=== PATIENT | male | born 1955 | race Hispanic/Latino ===

== ENCOUNTER 2018-07-26 08:22 | Emergency (ER) | payer OTHER ==
[2018-07-26] MEDS ORDERED: LIDOCAINE VISCOUS 2% SOLN 15 ML UDC ONE (09:02)
--- NOTE | 2018-07-26 09:13 | ER ---
Nurse's Notes [facility] Name: Haroldo Srivastava Age: 63 yrs Sex: Male : 1955 Arrival Date: 07/26/2018 Time: 08:25 Bed 20 Private MD: Jack Hinojosa Diagnosis: Retention of urine Presentation: 07/26 08:34 Presenting complaint: Patient states: unable to urinate since last night. Pt is ss currently taking Bactrim for UTI as prescribed by Dr. Pierre 3 days ago. Denies blood in urine and/or fever. Transition of care: patient was not received from another setting of care. Onset of symptoms was July 22, 2018. Risk Assessment: Do you want to hurt yourself or someone else? Patient reports no desire to harm self or others. Initial Sepsis Screen: Does the patient meet any 2 criteria? No. Patient's initial sepsis screen is negative. Does the patient have a suspected source of infection? Yes: Dysuria/Frequency/Urgency/UTI. Care prior to arrival: None. 08:34 Method Of Arrival: Ambulatory ss 08:34 Acuity: TERA 3 ss Historical: - Allergies: 08:37 No Known Allergies; ss - Home Meds: 08:37 Bactrim DS 800-160 mg Oral tab 1 tab 2 times per day [Active]; ss - PMHx: 08:37 None; ss - PSHx: 08:37 None; ss - Immunization history:: Adult Immunizations up to date. - Social history:: Smoking status: Patient/guardian denies using tobacco. - Ebola Screening: : Patient denies exposure to infectious person Patient denies travel to an Ebola-affected area in the 21 days before illness onset. Screenin:55 Abuse screen: Denies threats or abuse. Nutritional screening: No deficits noted. em Tuberculosis screening: No symptoms or risk factors identified. Fall Risk None identified. Assessment: 08:48 General: Appears uncomfortable, Behavior is calm, cooperative, Denies fever. Pain: em Complains of pain in suprapubic area Pain currently is 5 out of 10 on a pain scale. Quality of pain is described as pressure, Pain began last night. Neuro: Level of Consciousness is awake, alert, obeys commands, Oriented to person, place, time, situation. Cardiovascular: Capillary refill < 3 seconds Patient's skin is warm and dry. Respiratory: Airway is patent Respiratory effort is even, unlabored, Respiratory pattern is regular, symmetrical. GI: Abdomen is round Abdomen is tender to palpation in suprapubic area. : Genitalia appear normal Reports inability to void, since last night. EENT: No signs and/or symptoms were reported regarding the EENT system. Derm: Skin is intact, Skin is pink, warm \T\ dry. Musculoskeletal: Range of motion: intact in all extremities. 09:11 Reassessment: Patient and/or family updated on plan of care and expected duration. Pain em level reassessed. Patient is alert, oriented x 3, equal unlabored respirations, skin warm/dry/pink. pt reports feeling better after insertion of catheter. 09:22 Reassessment: Patient appears in no apparent distress at this time. Patient and/or em family updated on plan of care and expected duration. Pain level reassessed. Patient is alert, oriented x 3, equal unlabored respirations, skin warm/dry/pink. replaced jara bag with leg bag, pt tolerated well Patient states feeling better. Patient states symptoms have improved. Vital Signs: 08:37 BP 151 / 90; Pulse 65; Resp 16; Temp 98.6(O); Pulse Ox 97% on R/A; Weight 99.79 kg; ss Height 6 ft. 2 in. (187.96 cm); Pain 5/10; 08:37 Body Mass Index 28.25 (99.79 kg, 187.96 cm) ED Course: 08:25 Patient arrived in ED. mr 08:25 Jack Hinojosa MD is Private Physician. mr 08:28 Nicola Hou MD is Attending Physician. gs 08:35 Cayden Mistry LVN is Primary Nurse. em 08:37 Triage completed. ss 08:37 Arm band placed on right wrist. ss 08:55 Patient has correct armband on for positive identification. Placed in gown. Bed in low em position. Call light in reach. Adult w/ patient. 08:55 Bladder scan completed. 738 mL. em 09:10 Jara cath inserted, using sterile technique, 16 Fr., by mi, balloon inflated, to em gravity drainage, returned clear yellow urine. Patient tolerated well. 09:12 Lowell Pierre MD is Referral Physician. gs 09:23 No provider procedures requiring assistance completed. Patient did not have IV access em during this emergency room visit. Administered Medications: No medications were administered Outcome: 09:12 Discharge ordered by . gs 09:23 Discharged to home ambulatory, with family. em 09:23 Condition: good 09:23 Discharge instructions given to patient, family, Instructed on discharge instructions, follow up and referral plans. Demonstrated understanding of instructions, follow-up care. 09:36 Patient left the ED. em Signatures: Antonina Pedro Edgar, BUYER PLANNER BUYER PLANNER em Shannon Finley, JT RN ss Nicola Hou MD MD
--- NOTE | 2018-07-26 09:13 | EDPHYS ---
Physician Documentation [facility] Name: Haroldo Srivastava Age: 63 yrs Sex: Male : 1955 Arrival Date: 07/26/2018 Time: 08:25 Bed 20 Private MD: Jack Hinojosa ED Physician Nicola Hou HPI: 07/26 09:10 This 63 yrs old Male presents to ER via Ambulatory with complaints of Urinary gs Problem. 09:10 The patient presents with urinary symptoms, retention. Onset: The symptoms/episode gs began/occurred yesterday. Modifying factors: The symptoms are alleviated by nothing, the symptoms are aggravated by nothing. Associated signs and symptoms: Pertinent negatives: fever. Severity of symptoms: At their worst the symptoms were moderate, in the emergency department the symptoms are unchanged. The patient has not experienced similar symptoms in the past. The patient has been recently seen by a physician: Dr. pierre. Historical: - Allergies: 08:37 No Known Allergies; ss - Home Meds: 08:37 Bactrim DS 800-160 mg Oral tab 1 tab 2 times per day [Active]; ss - PMHx: 08:37 None; ss - PSHx: 08:37 None; ss - Immunization history:: Adult Immunizations up to date. - Social history:: Smoking status: Patient/guardian denies using tobacco. - Ebola Screening: : Patient denies exposure to infectious person Patient denies travel to an Ebola-affected area in the 21 days before illness onset. ROS: 09:10 All other systems are negative. gs Exam: 09:10 Head/Face: Normocephalic, atraumatic. Eyes: Pupils equal round and reactive to light, gs extra-ocular motions intact. Lids and lashes normal. Conjunctiva and sclera are non-icteric and not injected. Cornea within normal limits. Periorbital areas with no swelling, redness, or edema. Cardiovascular: Regular rate and rhythm with a normal S1 and S2. No gallops, murmurs, or rubs. Normal PMI, no JVD. No pulse deficits. Respiratory: Lungs have equal breath sounds bilaterally, clear to auscultation and percussion. No rales, rhonchi or wheezes noted. No increased work of breathing, no retractions or nasal flaring. Back: No spinal tenderness. No costovertebral tenderness. Full range of motion. Skin: Warm, dry with normal turgor. Normal color with no rashes, no lesions, and no evidence of cellulitis. MS/ Extremity: Pulses equal, no cyanosis. Neurovascular intact. Full, normal range of motion. Neuro: Awake and alert, GCS 15, oriented to person, place, time, and situation. Cranial nerves II-XII grossly intact. Motor strength 5/5 in all extremities. Sensory grossly intact. Cerebellar exam normal. Normal gait. 09:10 Constitutional: The patient appears alert, awake. 09:10 Abdomen/GI: Exam negative for acute changes. 09:10 : Bladder: distension, that is moderate, tenderness, that is mild. Vital Signs: 08:37 BP 151 / 90; Pulse 65; Resp 16; Temp 98.6(O); Pulse Ox 97% on R/A; Weight 99.79 kg; ss Height 6 ft. 2 in. (187.96 cm); Pain 5/10; 08:37 Body Mass Index 28.25 (99.79 kg, 187.96 cm) ss MDM: 08:37 Patient medically screened. gs 09:10 Differential diagnosis: nonspecific abdominal pain, UTI, urinary retention. Data gs reviewed: vital signs, nurses notes. Counseling: I had a detailed discussion with the patient and/or guardian regarding: the historical points, exam findings, and any diagnostic results supporting the discharge/admit diagnosis, the need for outpatient follow up. Response to treatment: the patient's symptoms have markedly improved after treatment, and as a result, I will discharge patient. 09:13 Counseling: I had a detailed discussion with the patient and/or guardian regarding: the gs presence of at least one elevated blood pressure reading (>120/80) during this emergency department visit. Special discussion: I have referred the patient to see his PCP for further evaluation of high blood pressure. 07/26 08:38 Order name: Bladder Scanner; Complete Time: 08:54 gs Administered Medications: No medications were administered Disposition: 07/26/18 09:12 Discharged to Home. Impression: Retention of urine. - Condition is Stable. - Discharge Instructions: Acute Urinary Retention, Male, Darby Catheter Care, Adult, [place], Managing Your Hypertension. - Work release form, Medication Reconciliation Form, Thank You Letter, Antibiotic Education, Prescription Opioid Use form. - Follow up: Lowell Pierre MD; When: 2 - 3 days; Reason: Re-evaluation by your physician. Signatures: Cayden Mistry LVN LVN em Smirch, Shelby, RN RN ss Nicola Hou MD MD gs Corrections: (The following items were deleted from the chart) 09:36 09:12 07/26/2018 09:12 Discharged to Home. Impression: Retention of urine. Condition is em Stable. Forms are Medication Reconciliation Form, Thank You Letter, Antibiotic Education, Prescription Opioid Use. Follow up: Lowell Pierre; When: 2 - 3 days; Reason: Re-evaluation by your physician. gs
[2018-07-26 09:43] VITALS: BP 151/90; TEMP 98.6; O2SAT 97
== END 2018-07-26 09:36 | disposition home or self-care (01) ==
LOC: ER 08:22
DX: R33.9 Retention of urine, unspecified (principal)
CPT/HCPCS: 51702; 99284

== ENCOUNTER 2019-01-31 02:53 | Emergency (ER) | payer OTHER ==
--- OUTSIDE RECORDS SUMMARY | 2019-01-31 02:55 | XMS REPORT ---
:1955 [facility] Address [address] [place] [address] Dr. Lobo[address] [place] [id number] Care Team Providers Name Role Phone Unavailable Unavailable Unavailable Problems This patient has no known problems. Allergies, Adverse Reactions, Alerts This patient has no known allergies or adverse reactions. Medications This patient has no known medications.
--- NOTE | 2019-01-31 03:36 | EDPHYS ---
Physician Documentation [facility] Name: Haroldo Srivastava Age: 63 yrs Sex: Male : 1955 Arrival Date: 01/31/2019 Time: 02:57 Bed 13 Private MD: Jack Hinojosa ED Physician Eagle Hayward HPI: 01/31 03:30 This 63 yrs old Male presents to ER via Ambulatory with complaints of Urinary pkl Retention. 03:30 The patient presents with urinary symptoms, retention. Onset: The symptoms/episode pkl began/occurred just prior to arrival, 2 hour(s) ago. The patient has experienced a previous episode, approximately 1 years ago. Historical: - Allergies: 03:16 No Known Allergies; tl2 - Home Meds: 03:17 None [Active]; tl2 - PMHx: 03:16 None; tl2 - PSHx: 03:16 None; tl2 - Immunization history:: Adult Immunizations up to date. - Social history:: Smoking status: Patient/guardian denies using tobacco. - Ebola Screening: : No symptoms or risks identified at this time. ROS: 03:30 Eyes: Negative for injury, pain, redness, and discharge, ENT: Negative for injury, pkl pain, and discharge, Neck: Negative for injury, pain, and swelling, Cardiovascular: Negative for chest pain, palpitations, and edema, Respiratory: Negative for shortness of breath, cough, wheezing, and pleuritic chest pain, Abdomen/GI: Negative for abdominal pain, nausea, vomiting, diarrhea, and constipation, Back: Negative for injury and pain. 03:30 : Positive for urinary symptoms, retention of urine. 03:30 MS/extremity: Negative for acute changes. 03:30 Skin: Negative for rash. 03:30 Neuro: Negative for altered mental status. Exam: 03:30 Head/Face: Normocephalic, atraumatic. Eyes: Pupils equal round and reactive to light, pkl extra-ocular motions intact. Lids and lashes normal. Conjunctiva and sclera are non-icteric and not injected. Cornea within normal limits. Periorbital areas with no swelling, redness, or edema. ENT: Nares patent. No nasal discharge, no septal abnormalities noted. Tympanic membranes are normal and external auditory canals are clear. Oropharynx with no redness, swelling, or masses, exudates, or evidence of obstruction, uvula midline. Mucous membranes moist. Neck: Trachea midline, no thyromegaly or masses palpated, and no cervical lymphadenopathy. Supple, full range of motion without nuchal rigidity, or vertebral point tenderness. No Meningismus. Chest/axilla: Normal chest wall appearance and motion. Nontender with no deformity. No lesions are appreciated. Cardiovascular: Regular rate and rhythm with a normal S1 and S2. No gallops, murmurs, or rubs. Normal PMI, no JVD. No pulse deficits. Respiratory: Lungs have equal breath sounds bilaterally, clear to auscultation and percussion. No rales, rhonchi or wheezes noted. No increased work of breathing, no retractions or nasal flaring. 03:30 Abdomen/GI: Bowel sounds: normal, Palpation: nontender. 03:30 Back: Exam negative for acute changes. pkl 03:30 : Exam negative for acute changes. 03:30 Musculoskeletal/extremity: Exam is negative for acute changes. 03:30 Skin: Exam negative for rash. 03:30 Neuro: Orientation: is normal, Mentation: is normal, Cranial nerves: grossly normal, Motor: is normal. Vital Signs: 03:17 BP 156 / 93; Pulse 63; Resp 18; Temp 98.6; Pulse Ox 97% on R/A; Weight 102.06 kg; tl2 Height 6 ft. 1 in. (185.42 cm); Pain 8/10; 04:53 BP 114 / 80; Pulse 67; Resp 18; Pulse Ox 97% on R/A; tl2 03:17 Body Mass Index 29.68 (102.06 kg, 185.42 cm) tl2 MDM: 03:22 Patient medically screened. pkl 03:30 Data reviewed: vital signs, nurses notes. pkl 01/31 03:22 Order name: Darby-Coude; Complete Time: 03:22 tl2 01/31 04:39 Order name: Leg Bag; Complete Time: 04:41 lt1 Administered Medications: No medications were administered Disposition: 01/31/19 03:35 Discharged to Home. Impression: Retention of urine. - Condition is Stable. - Prescriptions for Bactrim DS 800- 160 mg Oral Tablet - take 1 tablet by ORAL route every 12 hours for 10 days; 20 tablet. - Medication Reconciliation Form, Thank You Letter, Antibiotic Education, Prescription Opioid Use form. - Follow up: Lowell Pierre MD; When: 2 - 3 days; Reason: Re-evaluation by your physician. - Problem is new. - Symptoms have improved. Signatures: Eagle Hayward MD MD pkl Bernadette Kraft RN RN tl2 Nusrat Chavez 1 Corrections: (The following items were deleted from the chart) 04:52 03:35 01/31/2019 03:35 Discharged to Home. Impression: Retention of urine. Condition is tl2 Stable. Forms are Medication Reconciliation Form, Thank You Letter, Antibiotic Education, Prescription Opioid Use. Follow up: Lowell Pierre; When: 2 - 3 days; Reason: Re-evaluation by your physician. Problem is new. Symptoms have improved. pkl
--- NOTE | 2019-01-31 03:36 | ER ---
Nurse's Notes [facility] Name: Haroldo Srivastava Age: 63 yrs Sex: Male : 1955 Arrival Date: 01/31/2019 Time: 02:57 Bed 13 Private MD: Jack Hinojosa Diagnosis: Retention of urine Presentation: 01/31 03:15 Presenting complaint: Patient states: Unable to urinate for the last 2 hours, feels tl2 like bladder is full. Uncomfortable and pacing around room. States this has happened once before and he needed a catheter. Transition of care: patient was not received from another setting of care. Onset of symptoms was January 31, 2019. Risk Assessment: Do you want to hurt yourself or someone else? Patient reports no desire to harm self or others. Initial Sepsis Screen: Does the patient meet any 2 criteria? No. Patient's initial sepsis screen is negative. Does the patient have a suspected source of infection? No. Patient's initial sepsis screen is negative. Care prior to arrival: None. 03:15 Method Of Arrival: Ambulatory tl2 03:15 Acuity: TERA 3 tl2 Triage Assessment: 03:17 General: Appears in no apparent distress. uncomfortable, Behavior is cooperative, tl2 appropriate for age, anxious, restless. Pain: Complains of pain in suprapubic area. Neuro: Level of Consciousness is awake, alert, obeys commands, Oriented to person, place, time, situation. Cardiovascular: Denies chest pain. Respiratory: Airway is patent Respiratory effort is even, unlabored, Respiratory pattern is regular, symmetrical. GI: No signs and/or symptoms were reported involving the gastrointestinal system. GI:. : Reports inability to void, pain in suprapubic area. : distended bladder. Derm: Skin is pink, warm \T\ dry. Historical: - Allergies: 03:16 No Known Allergies; tl2 - Home Meds: 03:17 None [Active]; tl2 - PMHx: 03:16 None; tl2 - PSHx: 03:16 None; tl2 - Immunization history:: Adult Immunizations up to date. - Social history:: Smoking status: Patient/guardian denies using tobacco. - Ebola Screening: : No symptoms or risks identified at this time. Screenin:21 Abuse screen: Denies threats or abuse. Nutritional screening: No deficits noted. tl2 Tuberculosis screening: No symptoms or risk factors identified. Fall Risk None identified. Assessment: 03:21 General: see triage assessment. tl2 03:57 Reassessment: Patient appears in no apparent distress at this time. Patient and/or tl2 family updated on plan of care and expected duration. Pain level reassessed. Patient is alert, oriented x 3, equal unlabored respirations, skin warm/dry/pink. will transition jara to leg bag before discharge Patient states feeling better. 04:40 Reassessment: Patient appears in no apparent distress at this time. Patient and/or tl2 family updated on plan of care and expected duration. Pain level reassessed. Patient is alert, oriented x 3, equal unlabored respirations, skin warm/dry/pink. converted jara to leg bag, instructed patient on usage and how to drain. Pt verbalized understanding. Pt verbalized understanding of discharge instructions, need for follow up and prescription usage. Patient states feeling better. Vital Signs: 03:17 BP 156 / 93; Pulse 63; Resp 18; Temp 98.6; Pulse Ox 97% on R/A; Weight 102.06 kg; tl2 Height 6 ft. 1 in. (185.42 cm); Pain 8/10; 04:53 BP 114 / 80; Pulse 67; Resp 18; Pulse Ox 97% on R/A; tl2 03:17 Body Mass Index 29.68 (102.06 kg, 185.42 cm) tl2 ED Course: 02:57 Patient arrived in ED. am2 02:57 Jack Hinojosa MD is Private Physician. am2 03:14 Bernadette Kraft, RN is Primary Nurse. tl2 03:16 Triage completed. tl2 03:17 Arm band placed on right wrist. tl2 03:20 Patient has correct armband on for positive identification. Placed in gown. Bed in low tl2 position. Call light in reach. Side rails up X 1. Adult w/ patient. 03:20 Bladder scan completed. 789. Coud inserted, using sterile technique, 18 Fr. Returned tl2 clear yellow urine. To gravity drainage. Patient tolerated well. 03:22 Eagle Hayward MD is Attending Physician. pkl 03:35 Lowell Pierre MD is Referral Physician. pkl 04:40 No provider procedures requiring assistance completed. Patient did not have IV access tl2 during this emergency room visit. Administered Medications: No medications were administered Output: 03:41 Urine: 550ml (Jara); Total: 550ml. tl2 04:40 Urine: 600ml (Jara); Total: 1150ml. tl2 Outcome: 03:35 Discharge ordered by . pkl 04:40 Discharged to home ambulatory, with family. tl2 04:40 Condition: stable 04:40 Discharge instructions given to patient, family, Instructed on discharge instructions, follow up and referral plans. medication usage, use of jara leg bag Demonstrated understanding of instructions, follow-up care, medications, Prescriptions given X 1. 04:52 Patient left the ED. tl2 Signatures: Eagle Hayward MD MD pkl Bernadette Kraft RN RN tl2 Duyen Hammer am2 Corrections: (The following items were deleted from the chart) 03:42 03:23 Urine 1000, (Jara), Output Total 1000. tl2 tl2
[2019-01-31 04:57] VITALS: BP 156/93; TEMP 98.6; O2SAT 97
== END 2019-01-31 04:52 | disposition home or self-care (01) ==
LOC: ER 02:53
DX: R33.9 Retention of urine, unspecified (principal)
CPT/HCPCS: 99284

== ENCOUNTER 2019-02-01 08:10 | Emergency (ER) | payer OTHER ==
--- OUTSIDE RECORDS SUMMARY | 2019-02-01 08:16 | XMS REPORT ---
:1955 [facility] Address [address] [place] [address] [address]. [address] [place] [address] Care Team Providers Name Role Phone Unavailable Unavailable Unavailable Problems This patient has no known problems. Allergies, Adverse Reactions, Alerts This patient has no known allergies or adverse reactions. Medications This patient has no known medications.
--- NOTE | 2019-02-01 08:45 | EDPHYS ---
Physician Documentation [facility] Name: Haroldo Srivastava Age: 63 yrs Sex: Male : 1955 Arrival Date: 02/01/2019 Time: 08:13 Bed 8 Private MD: Jack Hinojosa ED Physician Derrek Sumnre HPI: 02/01 08:38 This 63 yrs old Male presents to ER via Ambulatory with complaints of Urinary madison Problem. 08:38 The patient presents with a Jara catheter problem, is not draining. Onset: The madison symptoms/episode began/occurred 1 day(s) ago. Modifying factors: The symptoms are alleviated by the symptoms are aggravated by nothing. Associated signs and symptoms: The patient has no apparent associated signs or symptoms. Severity of symptoms: At their worst the symptoms were mild, in the emergency department the symptoms are unchanged. The patient has not experienced similar symptoms in the past. Historical: - Allergies: 08:17 No Known Allergies; sv - PMHx: 08:17 None; sv - PSHx: 08:17 None; sv - Immunization history:: Adult Immunizations up to date. - Social history:: Smoking status: Patient/guardian denies using tobacco. - Ebola Screening: : No symptoms or risks identified at this time. - Family history:: not pertinent. ROS: 08:38 Constitutional: Negative for fever, chills, and weight loss, Eyes: Negative for injury, madison pain, redness, and discharge, ENT: Negative for injury, pain, and discharge, Neck: Negative for injury, pain, and swelling, Cardiovascular: Negative for chest pain, palpitations, and edema, Respiratory: Negative for shortness of breath, cough, wheezing, and pleuritic chest pain, Back: Negative for injury and pain, : Negative for injury, bleeding, discharge, and swelling, MS/Extremity: Negative for injury and deformity, Skin: Negative for injury, rash, and discoloration, Neuro: Negative for headache, weakness, numbness, tingling, and seizure, Psych: Negative for depression, anxiety, suicide ideation, homicidal ideation, and hallucinations, Allergy/Immunology: Negative for hives, rash, and allergies, Endocrine: Negative for neck swelling, polydipsia, polyuria, polyphagia, and marked weight changes, Hematologic/Lymphatic: Negative for swollen nodes, abnormal bleeding, and unusual bruising. 08:38 Abdomen/GI: Positive for abdominal pain, of the suprapubic area. 08:38 : Positive for urinary symptoms, burning with urination, difficulty urinating, jara blocked. 08:38 MS/extremity: Exam: 08:38 Constitutional: This is a well developed, well nourished patient who is awake, alert, madison and in no acute distress. Head/Face: Normocephalic, atraumatic. Eyes: Pupils equal round and reactive to light, extra-ocular motions intact. Lids and lashes normal. Conjunctiva and sclera are non-icteric and not injected. Cornea within normal limits. Periorbital areas with no swelling, redness, or edema. ENT: Nares patent. No nasal discharge, no septal abnormalities noted. Tympanic membranes are normal and external auditory canals are clear. Oropharynx with no redness, swelling, or masses, exudates, or evidence of obstruction, uvula midline. Mucous membranes moist. Neck: Trachea midline, no thyromegaly or masses palpated, and no cervical lymphadenopathy. Supple, full range of motion without nuchal rigidity, or vertebral point tenderness. No Meningismus. Chest/axilla: Normal chest wall appearance and motion. Nontender with no deformity. No lesions are appreciated. Cardiovascular: Regular rate and rhythm with a normal S1 and S2. No gallops, murmurs, or rubs. Normal PMI, no JVD. No pulse deficits. Respiratory: Lungs have equal breath sounds bilaterally, clear to auscultation and percussion. No rales, rhonchi or wheezes noted. No increased work of breathing, no retractions or nasal flaring. Abdomen/GI: Soft, non-tender, with normal bowel sounds. No distension or tympany. No guarding or rebound. No evidence of tenderness throughout. Back: No spinal tenderness. No costovertebral tenderness. Full range of motion. Skin: Warm, dry with normal turgor. Normal color with no rashes, no lesions, and no evidence of cellulitis. MS/ Extremity: Pulses equal, no cyanosis. Neurovascular intact. Full, normal range of motion. Neuro: Awake and alert, GCS 15, oriented to person, place, time, and situation. Cranial nerves II-XII grossly intact. Motor strength 5/5 in all extremities. Sensory grossly intact. Cerebellar exam normal. Normal gait. Psych: Awake, alert, with orientation to person, place and time. Behavior, mood, and affect are within normal limits. 08:38 : Male external genitalia: normal, Bladder: distension, that is mild. Vital Signs: 08:17 BP 154 / 88; Pulse 57; Resp 16; Temp 98.1; Pulse Ox 97% ; Weight 102.06 kg; Height 6 sv ft. 1 in. (185.42 cm); Pain 0/10; 09:25 BP 131 / 79; Pulse 65; Resp 14; Temp 98; Pulse Ox 98% ; bp 08:17 Body Mass Index 29.68 (102.06 kg, 185.42 cm) sv MDM: 08:21 Patient medically screened. [facility] 08:40 Data reviewed: vital signs, nurses notes, lab test result(s). [facility] 02/01 08:43 Order name: Urine Culture [facility] 02/01 08:45 Order name: Urine Culture [facility] 02/01 08:37 Order name: Jara: remove and replace; Complete Time: 08:48 [facility] 02/01 08:43 Order name: Urine Dipstick-Ancillary (obtain specimen); Complete Time: 08:56 [facility] Administered Medications: 09:00 Drug: Flomax 0.4 mg Route: PO; bp 09:13 Follow up: Response: No adverse reaction bp 09:00 Drug: Cipro 500 mg Route: PO; bp 09:12 Follow up: Response: No adverse reaction bp Disposition: 02/01/19 08:44 Discharged to Home. Impression: Retention of urine. - Condition is Stable. - Discharge Instructions: Jara Catheter Care, Adult, Acute Urinary Retention, Male, [id number], Jara Catheter Care, Adult, [id number]. - Prescriptions for Flomax 0.4 mg Oral Capsule, Sust. Release 24 hr - take 1 capsule by ORAL route once daily 1/2 hour following the same meal each day; 30 capsule. Cipro 500 mg Oral Tablet - take 1 tablet by ORAL route every 12 hours for 7 days; 14 tablet. - Medication Reconciliation Form, Thank You Letter, Antibiotic Education, Prescription Opioid Use form. - Follow up: Jack Hinojosa MD; When: 2 - 3 days; Reason: Recheck today's complaints, Continuance of care, Re-evaluation by your physician. Follow up: oLwell Pierre MD; When: 1 - 2 days; Reason: Recheck today's complaints, Re-evaluation by your physician. - Problem is new. - Symptoms have improved. Signatures: Dispatcher [employer] Tammy Orr, RN RN Derrek Smith MD MD cha Peltier, Brian RN RN bp Corrections: (The following items were deleted from the chart) 09:27 08:44 02/01/2019 08:44 Discharged to Home. Impression: Retention of urine. Condition is bp Stable. Forms are Medication Reconciliation Form, Thank You Letter, Antibiotic Education, Prescription Opioid Use. Follow up: Jack Hinojosa; When: 2 - 3 days; Reason: Recheck today's complaints, Continuance of care, Re-evaluation by your physician. Follow up: Lowell Pierre; When: 1 - 2 days; Reason: Recheck today's complaints, Re-evaluation by your physician. Problem is new. Symptoms have improved. madison
--- NOTE | 2019-02-01 08:45 | ER ---
Nurse's Notes [facility] Name: Haroldo Srivastava Age: 63 yrs Sex: Male : 1955 Arrival Date: 02/01/2019 Time: 08:13 Bed 8 Private MD: Jack Hinojosa Diagnosis: Retention of urine Presentation: 02/01 08:15 Risk Assessment: Do you want to hurt yourself or someone else? Patient reports no bp desire to harm self or others. 08:16 Presenting complaint: Patient states: hasn't had anymore urine since 0200 today, pt has sv a pisano catheter in place that was placed here on Friday. Pt c/o pain when he tries to urinate. Transition of care: patient was not received from another setting of care. Onset of symptoms was February 01, 2019. Initial Sepsis Screen: Does the patient meet any 2 criteria? No. Patient's initial sepsis screen is negative. Does the patient have a suspected source of infection? No. Patient's initial sepsis screen is negative. Care prior to arrival: None. 08:16 Method Of Arrival: Ambulatory sv 08:16 Acuity: TERA 3 sv Triage Assessment: 08:16 General: Appears in no apparent distress. well developed, Behavior is calm, sv cooperative, appropriate for age. Neuro: Level of Consciousness is awake, alert, obeys commands, Oriented to person, place, time, situation, Gait is steady. Respiratory: Respiratory effort is even, unlabored, Respiratory pattern is regular, symmetrical. : Reports pain with urination. Historical: - Allergies: 08:17 No Known Allergies; sv - PMHx: 08:17 None; sv - PSHx: 08:17 None; sv - Immunization history:: Adult Immunizations up to date. - Social history:: Smoking status: Patient/guardian denies using tobacco. - Ebola Screening: : No symptoms or risks identified at this time. - Family history:: not pertinent. Screenin:15 Abuse screen: Denies threats or abuse. Denies injuries from another. Nutritional bp screening: No deficits noted. Tuberculosis screening: No symptoms or risk factors identified. Fall Risk None identified. Assessment: 08:15 General: Appears distressed, uncomfortable, Behavior is cooperative, appropriate for bp age, anxious. Pain: Complains of pain in pelvis Pain currently is 10 out of 10 on a pain scale. Neuro: Level of Consciousness is awake, alert, obeys commands, Oriented to person, place, time, situation. Cardiovascular: No deficits noted. Respiratory: Airway is patent Respiratory effort is even, unlabored, Respiratory pattern is regular, symmetrical. GI: No signs and/or symptoms were reported involving the gastrointestinal system. : No signs and/or symptoms were reported regarding the genitourinary system. EENT: No deficits noted. Derm: No deficits noted. Musculoskeletal: Circulation, motion, and sensation intact. Range of motion: intact in all extremities. 09:25 Reassessment: PISANO BAG REPLACED WITH LEG BAG. PT D/C HOME AMBULATORY WITH FAMILY, TO bp F/U WITH UROLOGY. Vital Signs: 08:17 BP 154 / 88; Pulse 57; Resp 16; Temp 98.1; Pulse Ox 97% ; Weight 102.06 kg; Height 6 sv ft. 1 in. (185.42 cm); Pain 0/10; 09:25 BP 131 / 79; Pulse 65; Resp 14; Temp 98; Pulse Ox 98% ; bp 08:17 Body Mass Index 29.68 (102.06 kg, 185.42 cm) sv ED Course: 08:13 Patient arrived in ED. ag5 08:13 Jack Hinojosa MD is Private Physician. ag5 08:15 Patient has correct armband on for positive identification. Bed in low position. Call bp light in reach. Side rails up X2. Adult w/ patient. 08:17 Triage completed. sv 08:17 Arm band placed on. sv 08:21 Derrek Sumner MD is Attending Physician. madison 08:44 Jack Hinojosa MD is Referral Physician. maidson 08:44 Lowell Pierre MD is Referral Physician. madison 08:46 Naveed Pinedo, JT is Primary Nurse. bp 08:48 Pisano cath inserted, using sterile technique, 16 Fr., by ks, balloon inflated, to bp gravity drainage, urine specimen collected. other PREVIOUS PISANO REMOVED, CLOTS NOTED IN TUBE. 08:55 Urine collected: Pisano catheter specimen, cloudy, db colored. jb1 09:26 No provider procedures requiring assistance completed. Patient did not have IV access bp during this emergency room visit. Administered Medications: 09:00 Drug: Flomax 0.4 mg Route: PO; bp 09:13 Follow up: Response: No adverse reaction bp 09:00 Drug: Cipro 500 mg Route: PO; bp 09:12 Follow up: Response: No adverse reaction bp Outcome: 08:44 Discharge ordered by . madison 09:26 Discharged to home ambulatory, with family. bp 09:26 Condition: stable 09:26 Discharge instructions given to patient, Instructed on discharge instructions, follow up and referral plans. medication usage, Demonstrated understanding of instructions, follow-up care, medications, Prescriptions given X 2. 09:27 Patient left the ED. bp Signatures: Ancelmo Humphreys jb1 Tammy Mix, JT RN Derrek Smith MD MD cha Peltier, Brian, RN RN Brennen Stout ag5
[2019-02-01] MEDS ORDERED: TAMSULOSIN 0.4 MG SR CAP ONE (09:20)
[2019-02-01] MEDS ORDERED: CIPROFLOXACIN HCL 500 MG TAB ONE (09:20)
[2019-02-01 09:42] VITALS: BP 131/79; TEMP 98; O2SAT 98
[2019-02-01 10:43] LABS: Urine Blood 3+ (NEG); Urine Glucose NEGATIVE (NEG); Urine Protein 2+ (NEG); Urine Specific Gravity 1.025 (1.005-1.030)
== END 2019-02-01 09:27 | disposition home or self-care (01) ==
LOC: ER 08:10
DX: R33.9 Retention of urine, unspecified (principal); T83.098A Other mechanical complication of other urinary catheter, initial encounter
CPT/HCPCS: 51702; 81003; 87086; 87088; 99284

== ENCOUNTER 2019-02-10 06:15 | Emergency (ER) | payer OTHER ==
--- OUTSIDE RECORDS SUMMARY | 2019-02-10 06:17 | XMS REPORT | Clinical Summary ---
:1955 Author Organization [facility] Address [address] [place] [address] Care Team Providers Name Role Phone Unavailable Primary Care Provider Unavailable Allergies Not on File Medications Not on file Active Problems Not on file Social History Tobacco Use Types Packs/Day Years Used Date Never Assessed Sex Assigned at Date Recorded Not on file Job Start Date Occupation Industry Not on file Not on file Not on file Travel History Travel Start Travel End No recent travel history available. Last Filed Vital Signs Not on file Plan of Treatment Date Type Specialty Care Team Description 03/09/2019 Office Visit Urology Cristobal Granados MD [address] [phone] Results Not on fileafter 02/09/2018 Insurance Payer Benefit Plan / Group Subscriber ID Type Phone Address OSMAR FARIASGENARO MORATAYA xxxxxxxxxxx
--- OUTSIDE RECORDS SUMMARY | 2019-02-10 06:18 | XMS REPORT ---
:1955 [facility] Address [address] [place] [address] [address] [place] [address] Care Team Providers Name Role Phone Unavailable Unavailable Unavailable Problems This patient has no known problems. Allergies, Adverse Reactions, Alerts This patient has no known allergies or adverse reactions. Medications This patient has no known medications.
--- NOTE | 2019-02-10 07:11 | ER ---
Nurse's Notes [facility] Name: Haroldo Srivastava Age: 63 yrs Sex: Male : 1955 Arrival Date: 02/10/2019 Time: 06:18 Bed 16 Private MD: Diagnosis: Retention of urine;Encounter for fitting and adjustment of urinary device Presentation: 02/10 06:30 Presenting complaint: Patient states: he has a jara due to urinary retention but it is bb not working and he is in severe pain. Transition of care: patient was not received from another setting of care. Onset of symptoms was February 10, 2019. Risk Assessment: Do you want to hurt yourself or someone else? Patient reports no desire to harm self or others. Initial Sepsis Screen: Does the patient meet any 2 criteria? No. Patient's initial sepsis screen is negative. Does the patient have a suspected source of infection? No. Patient's initial sepsis screen is negative. Care prior to arrival: None. 06:30 Method Of Arrival: Ambulatory bb 06:30 Acuity: TERA 3 bb Triage Assessment: 06:35 General: Appears uncomfortable, slender, Behavior is anxious. Pain: Complains of pain bb in pelvis Pain currently is 10 out of 10 on a pain scale. Neuro: Level of Consciousness is awake, alert, obeys commands, Oriented to person, place, time, situation. Cardiovascular: No deficits noted. Respiratory: Respiratory effort is even, unlabored, Respiratory pattern is regular. GI: No signs and/or symptoms were reported involving the gastrointestinal system. : Reports inability to void. : Jara in place. Musculoskeletal: Circulation, motion, and sensation intact. - Immunization history:: Adult Immunizations unknown. - Social history:: Smoking status: unknown. - Ebola Screening: : No symptoms or risks identified at this time. Screenin:53 Abuse screen: Denies threats or abuse. Nutritional screening: No deficits noted. bb Tuberculosis screening: No symptoms or risk factors identified. Fall Risk None identified. Assessment: 07:35 Reassessment: Patient appears in no apparent distress at this time. Patient and/or ph family updated on plan of care and expected duration. Pain level reassessed. Patient is alert, oriented x 3, equal unlabored respirations, skin warm/dry/pink. Jara in place, draining well, approx 550 cc noted in bedside drainage bag, converted to leg bag and pt d/c home w/ instructions to follow up w/ urologist this afternoon Patient states feeling better. Patient states symptoms have improved. Vital Signs: 06:35 BP 151 / 98; Pulse 60; Resp 18 S; Temp 98.4(O); Pulse Ox 100% on R/A; Weight 102.06 kg bb (R); Height 6 ft. 1 in. (185.42 cm) (R); Pain 10/10; 07:37 BP 142 / 78; Pulse 62; Resp 18; Temp 97.9(TE); Pulse Ox 100% on R/A; Pain 2/10; ph 06:35 Body Mass Index 29.68 (102.06 kg, 185.42 cm) bb ED Course: 06:18 Patient arrived in ED. am2 06:27 Renea Romero [facility]-C [facility]. snw 06:27 Isac Robison MD is Attending Physician. snw 06:35 Arm band placed on Patient placed in an exam room, on a stretcher, on pulse oximetry. bb Family accompanied patient. 06:35 Patient has correct armband on for positive identification. Bed in low position. Call bb light in reach. Side rails up X 1. Adult w/ patient. 06:45 Jara cath balloon deflated. bb 06:46 Jara cath inserted, using sterile technique, 16 Fr., by wi, balloon inflated, to bb gravity drainage, returned bloody urine. with clots. 06:48 Triage completed. bb 06:52 Warm blanket given. Linen changed. bb 06:58 Sandy Camilo, RN is Primary Nurse. ph 07:36 No provider procedures requiring assistance completed. IV discontinued, intact, ph bleeding controlled, No redness/swelling at site. Pressure dressing applied. Administered Medications: No medications were administered Outcome: 07:10 Discharge ordered by . snw 07:37 Discharged to home ambulatory, with significant other. ph 07:37 Condition: good 07:37 Discharge instructions given to patient, significant other, Instructed on discharge instructions, follow up and referral plans. Demonstrated understanding of instructions, follow-up care. 07:37 Patient left the ED. ph Signatures: Renea Romero FNP-C CORE SUCKER-Csnw Talisha Pierce, RN RN Sandy Cai RN RN ph Harman, Duyen Kayla
--- NOTE | 2019-02-10 07:12 | EDPHYS ---
Physician Documentation [facility] Name: Haroldo Srivastava Age: 63 yrs Sex: Male : 1955 Arrival Date: 02/10/2019 Time: 06:18 Bed 16 Private MD: ED Physician Isac Robison HPI: 02/10 07:15 This 63 yrs old Male presents to ER via Ambulatory with complaints of Urinary snw Retention. 07:15 Onset: The symptoms/episode began/occurred suddenly, last night. Associated signs and snw symptoms: Pertinent positives: lower abd pain, no urine output. The patient has experienced similar episodes in the past, multiple times. appt with urologist in [place] today at 3pm. - Immunization history:: Adult Immunizations unknown. - Social history:: Smoking status: unknown. - Ebola Screening: : No symptoms or risks identified at this time. ROS: 07:15 Constitutional: Negative for fever, chills, and weight loss, Eyes: Negative for injury, snw pain, redness, and discharge, ENT: Negative for injury, pain, and discharge, Neck: Negative for injury, pain, and swelling, Cardiovascular: Negative for chest pain, palpitations, and edema, Respiratory: Negative for shortness of breath, cough, wheezing, and pleuritic chest pain, Abdomen/GI: Negative for abdominal pain, nausea, vomiting, diarrhea, and constipation, Back: Negative for injury and pain, MS/Extremity: Negative for injury and deformity, Skin: Negative for injury, rash, and discoloration, Neuro: Negative for headache, weakness, numbness, tingling, and seizure. 07:15 : Positive for urinary retention/clogged jara. Exam: 07:09 Constitutional: This is a well developed, well nourished patient who is awake, alert, snw and in no acute distress. Head/Face: Normocephalic, atraumatic. Eyes: Pupils equal round and reactive to light, extra-ocular motions intact. Lids and lashes normal. Conjunctiva and sclera are non-icteric and not injected. Cornea within normal limits. Periorbital areas with no swelling, redness, or edema. ENT: Nares patent. No nasal discharge, no septal abnormalities noted. Tympanic membranes are normal and external auditory canals are clear. Oropharynx with no redness, swelling, or masses, exudates, or evidence of obstruction, uvula midline. Mucous membranes moist. Neck: Trachea midline, no thyromegaly or masses palpated, and no cervical lymphadenopathy. Supple, full range of motion without nuchal rigidity, or vertebral point tenderness. No Meningismus. Chest/axilla: Normal chest wall appearance and motion. Nontender with no deformity. No lesions are appreciated. Cardiovascular: Regular rate and rhythm with a normal S1 and S2. No gallops, murmurs, or rubs. Normal PMI, no JVD. No pulse deficits. Respiratory: Lungs have equal breath sounds bilaterally, clear to auscultation and percussion. No rales, rhonchi or wheezes noted. No increased work of breathing, no retractions or nasal flaring. Back: No spinal tenderness. No costovertebral tenderness. Full range of motion. Male : Normal genitalia with no discharge or lesions. Skin: Warm, dry with normal turgor. Normal color with no rashes, no lesions, and no evidence of cellulitis. MS/ Extremity: Pulses equal, no cyanosis. Neurovascular intact. Full, normal range of motion. Neuro: Awake and alert, GCS 15, oriented to person, place, time, and situation. Cranial nerves II-XII grossly intact. Motor strength 5/5 in all extremities. Sensory grossly intact. Cerebellar exam normal. Normal gait. 07:09 Abdomen/GI: Inspection: abdomen appears normal, Bowel sounds: normal, Palpation: mild abdominal tenderness, in the suprapubic area. Vital Signs: 06:35 BP 151 / 98; Pulse 60; Resp 18 S; Temp 98.4(O); Pulse Ox 100% on R/A; Weight 102.06 kg bb (R); Height 6 ft. 1 in. (185.42 cm) (R); Pain 10/10; 07:37 BP 142 / 78; Pulse 62; Resp 18; Temp 97.9(TE); Pulse Ox 100% on R/A; Pain 2/10; ph 06:35 Body Mass Index 29.68 (102.06 kg, 185.42 cm) bb MDM: 06:27 Patient medically screened. snw 07:11 Data reviewed: vital signs, nurses notes. Data interpreted: Pulse oximetry: on room air snw is 100 %. Interpretation: normal. Counseling: I had a detailed discussion with the patient and/or guardian regarding: the historical points, exam findings, and any diagnostic results supporting the discharge/admit diagnosis, the need for outpatient follow up, to return to the emergency department if symptoms worsen or persist or if there are any questions or concerns that arise at home. Response to treatment: the patient's symptoms have markedly improved after treatment. Special discussion: Based on the history and exam findings, there is no indication for further emergent testing or inpatient evaluation. I discussed with the patient/guardian the need to see the urologist for further evaluation of the symptoms. 02/10 06:40 Order name: Jara; Complete Time: 06:54 snw 02/10 07:33 Order name: Leg Bag; Complete Time: 07:33 ph Administered Medications: No medications were administered Disposition: 09:22 Co-signature as Attending Physician, Isac Robison MD. rn Disposition: 02/10/19 07:10 Discharged to Home. Impression: Retention of urine, Encounter for fitting and adjustment of urinary device. - Condition is Stable. - Discharge Instructions: Jara Catheter Care, Adult, Acute Urinary Retention, Male. - Medication Reconciliation Form, Thank You Letter, Antibiotic Education, Prescription Opioid Use form. - Follow up: Private Physician; When: as scheduled today; Reason: Recheck today's complaints, Continuance of care. Signatures: Renea Romero, DESIGN CELL ENGINEER-C DESIGN CELL ENGINEER-Csnw Talisha Pierce RN RN bb Nieto, Roman, MD MD rn Hall, Patricia, RN RN ph Corrections: (The following items were deleted from the chart) 07:37 07:10 02/10/2019 07:10 Discharged to Home. Impression: Retention of urine; Encounter ph for fitting and adjustment of urinary device. Condition is Stable. Forms are Medication Reconciliation Form, Thank You Letter, Antibiotic Education, Prescription Opioid Use. Follow up: Private Physician; When: as scheduled today; Reason: Recheck today's complaints, Continuance of care. snw
[2019-02-10 07:43] VITALS: O2SAT 100
[2019-02-10 07:44] VITALS: BP 142/78; TEMP 97.9
== END 2019-02-10 07:37 | disposition home or self-care (01) ==
LOC: ER 06:15
DX: Z46.6 Encounter for fitting and adjustment of urinary device (principal)
CPT/HCPCS: 51702; 99284

== ENCOUNTER 2020-09-30 07:51 | Emergency (ER) | payer MEDICARE, OTHER, SELFPAY ==
--- OUTSIDE RECORDS SUMMARY | 2020-09-30 08:04 | XMS REPORT | Continuity of Care Document ---
:1955 Author Organization [facility] t Address [address] [place] [address] Care Team Providers Name Role Phone Jadyn Clayton Attending Clinician Edwin Herron Attending Clinician Chris Alan Attending Clinician VISIT, UAHT Attending Clinician Unavailable VISIT, UAHT Attending Clinician Unavailable Kathy Deutsch Attending Clinician Problems Condition Condition Condition Status Onset Resolution Last Treating Co mments Source Name Details Category Date Date Treatment Clinician Date Hyperchole Problem Resolve 2020-09-13 Memoria sterolemia d 22:43:20 l (disorder) Gutierrez n Hyperchole sterolemia (disorder) Resolved Problem 09/13/2020 Medical Group Senile Problem Active 2020-09-13 Memor ia cataract 22:43:20 l (disorder) Senile Herm wagner cataract (disorder) Active Problem 09/13/2020 Medical Group Benign Problem Active 2020-09-13 Memor ia prostatic 22:43:20 l hypertroph Benign Herm wagner with prostatic outflow hypertroph obstructio with n outflow (disorder) obstructio n (disorder) Active Problem 09/13/2020 Medical Group Finding of Problem Active 2020-09-13 M emoria increased 22:43:20 l blood Finding Sells pressure of (finding) increased blood pressure (finding) Active Problem 09/13/2020 Medical Group Prediabete Problem Active 2020-09-13 M emoria s 22:43:20 l (finding) Brigido Prediabete s (finding) Active Problem 09/13/2020 Medical Group Screening Problem Active 2020-09-13 Me moria status 22:43:20 l (finding) Brigido Screening status (finding) Active Problem 09/13/2020 Medical Group Simple Problem Active 2020-09-13 Memor ia obesity 22:43:20 l (disorder) Simple Herm wagner obesity (disorder) Active Problem 09/13/2020 Medical Group Patient Problem Active 2020-09-13 Hai natalia encounter 22:43:20 l status Patient Brigido (finding) encounter status (finding) Active Problem 09/13/2020 Medical Group Pure Problem Active 2020-09-13 Memor ia hyperchole 22:43:20 l sterolemia Pure Gutierrez n (disorder) hyperchole sterolemia (disorder) Active Problem 09/13/2020 Medical Group Raised Problem Active 2020-09-13 Memor ia prostate 22:43:20 l specific Raised Gutierrez n antigen prostate (finding) specific antigen (finding) Active Problem 09/13/2020 Medical Group Viral Problem Active 2020-09-13 Memor ia screening 22:43:20 l status Viral Sells (finding) screening status (finding) Active Problem 09/13/2020 Medical [facility] Allergies, Adverse Reactions, Alerts Allergy Allergy Status Severity Reaction(s) Onset Inactive Treating Comm ents Source Name Type Date Date Clinician No Known No Known Active Memori a Medicati Medicati l on on Sells Allergie Allergie s s Social History Smoking Status Start Date Stop Date Source Social History [facility] Medications Ordered Filled Start Stop Current Ordering Indication Dosage Frequency Signature Comments Components Source Medication Medication Date Date Medication? Clinician (SIG) Name Name terbinafine 2020-0 Yes 250 mg = 1 Memoria 250 mg oral 8-14 tab, PO, l tablet 19:55: Daily, X Sells 00 30 day, # 30 tab, 0 Refill(s) Betamethaso 2020-0 Yes 1 appl, Mem oria ne 0.5 8-14 TOP, BID, l MG/ML / 19:54: PRN Apply Rosalinda nn Clotrimazol 00 to e 10 MG/ML affected Topical areas, Not Cream to be used longer than 2 weeks, X 14 day, # 45 gm, 0 Refill(s), Pharmacy: [facility], 185.42, cm, 04/21/20 14:23:00 CDT, Height, 101.364, kg, 04/21/20 14:23:00 CDT, Weight finasteride 2020-0 Yes 5 mg = 1 Me moria 5 mg oral 8-14 tab, PO, l tablet 19:53: Daily, # Sells 00 90 tab, 1 Refill(s), Pharmacy: [facility], 185.42, cm, 04/21/20 14:23:00 CDT, Height, 101.364, kg, 04/21/20 14:23:00 CDT, Weight simvastatin Yes 10 mg = 1 M emoria 10 mg oral 8-14 tab, PO, l tablet 19:53: Bedtime, # Rosalinda nn 00 90 tab, 1 Refill(s), Pharmacy: [facility], 185.42, cm, 04/21/20 14:23:00 CDT, Height, 101.364, kg, 04/21/20 14:23:00 CDT, Weight tamsulosin Yes 0.4 mg = 1 M emoria 0.4 mg oral 8-14 cap, PO, l capsule 19:53: Daily, # Gutierrez n 00 90 cap, 1 Refill(s), Pharmacy: [facility], 185.42, cm, 04/21/20 14:23:00 CDT, Height, 101.364, kg, 04/21/20 14:23:00 CDT, Weight tamsulosin 2018-09 Yes 0.4 mg = 1 M emoria 0.4 mg oral 2-09 cap, PO, l capsule 22:54: Daily, # Gutierrez n 08 90 cap, 1 Refill(s), Pharmacy: [facility] simvastatin 2018-09 Yes 10 mg = 1 M emoria 10 mg oral 2-09 tab, PO, l tablet 22:53: Bedtime, # Rosalinda nn 53 90 tab, 1 Refill(s), Pharmacy: [place] [id number] Sulfamethox 2018- Yes 1 tab, PO, Memoria azole 800 8-28 BID, start l MG / 14:34: day before Brigido Trimethopri 00 procedure, m 160 MG X 3 day, # Oral Tablet 6 tab, 0 [Bactrim] Refill(s), Pharmacy: [facility] Sodium 2018- Yes 1 ea, [place], Memori a Phosphate, 8-28 ONCE, l Dibasic 14:34: morning of Herm wagner 35.5 MG/ML 00 procedure, / Sodium # 118 ml, Phosphate, 0 Monobasic Refill(s), 96.4 MG/ML Pharmacy: Latrice Humphrey [[facility]] [facility] simvastatin 2019-0 Yes 10 mg = 1 M emoria 10 mg oral 8-15 tab, PO, l tablet 19:42: Bedtime, # Rosalinda nn 39 90 tab, 1 Refill(s), Pharmacy: [facility] simvastatin 2018-0 Yes 10 mg = 1 M emoria 10 mg oral 7-30 tab, PO, l tablet 12:16: Bedtime, # Rosalinda nn 00 90 tab, 1 Refill(s), Pharmacy: [facility] tamsulosin 2018-0 Yes 0.4 mg = 1 M emoria 0.4 mg oral 7-17 cap, PO, l capsule 16:20: Daily, # Gutierrez n 00 90 cap, 1 Refill(s), Pharmacy: [facility] finasteride 2018-0 Yes 5 mg = 1 Me moria 5 mg oral 7-17 tab, PO, l tablet 16:20: Daily, # Sells 00 90 tab, 1 Refill(s), Pharmacy: [facility] finasteride 2018-0 No 5 mg = 1 Me moria 5 mg oral 7-17 tab, PO, l tablet 15:55: Daily, # Sells 00 90 tab, 1 Refill(s) Vital Signs Vital Name Observation Time Observation Value Comments Source Systolic (mm Hg) 2020-04-21 19:23:00 Hai samanta Fofana Diastolic (mm Hg) 2020-04-21 19:23:00 Mem oriana Fofana Temperature Oral (F) 2020-04-21 19:23:00 98.0 F [facility] Height 2020-04-21 19:23:00 185.42 cm [facility] Weight 2020-04-21 19:23:00 [facility] BMI Calculated 2020-04-21 19:23:00 Jian al Brigido Systolic (mm Hg) 2019-08-16 19:27:00 Hai samanta Sells Diastolic (mm Hg) 2019-08-16 19:27:00 Mem orial Brigido Heart Rate 2019-08-16 19:27:00 [facility] Temperature Oral (F) 2019-08-16 19:27:00 97.9 F [facility] Height 2019-08-16 19:27:00 185.42 cm [facility] Sells Weight 2019-08-16 19:27:00 [facility] BMI Calculated 2019-08-16 19:27:00 Memori al [place] Height 2019-05-04 18:12:00 182.88 cm [facility] Sells Weight 2019-05-04 18:12:00 [facility] Sells BMI Calculated 2019-05-04 18:12:00 Memori al Sells Weight 2019-04-05 12:17:00 [facility] Sells BMI Calculated 2019-04-05 12:17:00 Memori al Brigido Height 2019-04-05 12:17:00 185.42 cm [facility] Sells Systolic (mm Hg) 2019-04-05 12:17:00 Hai rial Sells Diastolic (mm Hg) 2019-04-05 12:17:00 Mem orial Brigido Heart Rate 2019-04-05 12:17:00 [facility] Sells Temperature Oral (F) 2019-04-05 12:17:00 97.0 F [facility] S[facility] Weight 2019-03-24 15:43:00 [facility] BMI Calculated 2019-03-24 15:43:00 Memori al [place] Height 2019-03-24 15:43:00 185.42 cm [facility] Sells Temperature Oral (F) 2019-03-24 15:43:00 98.3 F [facility] Heart Rate 2019-03-24 15:43:00 [facility] Sells Systolic (mm Hg) 2019-03-24 15:43:00 Hai rial Sells Diastolic (mm Hg) 2019-03-24 15:43:00 Mem orial Sells Procedures This patient has no known procedures. Encounters Start End Encounter Admission Attending Care Care Encounter Source Date/Time Date/Time Type Type Clinicians Facility Department ID 2020-09-11 2020-09-11 Outpatient Recavarren [facility] [id number] 13:30:00 13:30:00 Michael Vale 2020-05-25 2020-05-25 Outpatient Germaine [facility] [id number] 14:45:00 14:45:00 Ranjeet Gilln 2020-05-19 2020-05-20 Outpatient [facility] [id number] 15:21:18 23:59:59 07 2020-05-08 2020-05-09 Outpatient [facility] [id number] 16:42:37 23:59:59 04 2020-04-21 2020-04-21 Outpatient Recavarren [facility] [id number] 14:30:00 23:59:59 Vi Vale 2020-04-18 2020-04-19 Outpatient [facility] [id number] 14:39:14 23:59:59 03 2020-04-18 2020-04-19 Outpatient [facility] [id number] 14:37:57 23:59:59 02 2019-09-17 2019-09-17 Outpatient [place], [facility] [id number] 09:40:00 09:40:00 Jose Perez 18 2019-09-09 2019-09-09 Outpatient [place], [facility] [id number] 09:45:00 09:45:00 Jose Perez 15 2019-09-09 2019-09-09 Outpatient VISIT, [facility] [id number] 09:45:00 09:45:00 MED_ASST 16 [facility] 2019-09-09 2019-09-09 Outpatient VISIT, [facility] [id number] 09:45:00 09:45:00 NURSE [facility] 17 2019-08-17 2019-08-18 Outpatient [facility] [id number] 10:24:00 23:59:59 2019-08-16 2019-08-16 Outpatient Recavarren [facility] [id number] 13:30:00 23:59:59 Amanda Vale 2019-08-03 2019-08-03 Outpatient Recavarren [facility] [id number] 10:00:00 10:00:00 Keith Vale 2019-08-02 2019-08-02 Outpatient Recavarren [facility] [id number] 07:30:00 07:30:00 Vandana Vale 2019-07-26 2019-07-26 Outpatient Rec[facility]ren [facility] [id number] 07:30:00 07:30:00 Akanksha 11 Jadyn Raquel 2019-07-05 2019-07-05 Outpatient Recav[facility]ren [facility] [id number] 11:30:00 11:30:00 Akanksha 05 Jadyn Raquel 2019-05-28 2019-05-28 Outpatient Dayanna, [facility] [id number] 11:30:00 11:30:00 Jose Chris 10 2019-05-05 2019-05-05 Outpatient Dayanna, [facility] [id number] 09:15:00 23:59:59 Jose Chris 06 2019-04-22 2019-04-23 Outpatient [facility] [id number] 14:38:36 23:59:59 2019-04-05 2019-04-05 Outpatient Recavarren [facility] [id number] 07:00:00 23:59:59 Akanksha 04 Jadyn García 2019-03-25 2019-03-25 Outpatient [place], MG [facility] [id number] 10:30:00 10:30:00 Marisabelquan Kathy 2019-03-24 2019-03-24 Outpatient Rec[facility]ren [facility] [id number] 10:30:00 23:59:59 Akanksha 03 Jadyn García 2019-03-24 2019-03-24 Outpatient Rec[facility]ren [facility] [id number] 10:30:00 10:30:00 Akanksha, 02 Jadyn García 2019-03-24 2019-03-24 Outpatient Recavarren [facility] [id number] 10:30:00 10:30:00 Akanksha, 01 Jadyn García Results This patient has no known results.
--- OUTSIDE RECORDS SUMMARY | 2020-09-30 08:04 | XMS REPORT | Summary of Care ---
:1955 Author Organization [facility] Primary Care [place] Address [address] [place] [address]- Encounter HQ Encntr_alias(FIN) [id number] Date(s): 09/11/20 - 09/11/20 [facility] [place] [address] [place] [address]- [phone] Attending Physician: Jadyn Clayton MD Referring Physician: Jadyn Clayton MD Vital Signs No data available for this section Problem List Condition Effective Dates Status Health Status Informant Age related cataract(Confirmed) Active BPH associated with Active nocturia(Confirmed) BPH with urinary Active obstruction(Confirmed) Elevated blood pressure Active reading(Confirmed) High cholesterol(Confirmed) Resolved Medicare annual wellness visit, Active initial(Confirmed) Encounter for screening for Active HIV(Confirmed) Prediabetes(Confirmed) Active Pure hypercholesterolemia(Confirmed) Active Elevated PSA(Confirmed) Active Screen for colon cancer(Confirmed) Active Diabetes mellitus Active screening(Confirmed) Simple obesity(Confirmed) Active Need for hepatitis C screening Active test(Confirmed) Allergies, Adverse Reactions, Alerts No Known Medication Allergies Medications No data available for this section Results No data available for this section Immunizations Given and Recorded Vaccine Date Status Refusal Reason influenza virus vaccine, inactivated 08/16/19 Given Procedures No data available for this section Social History Social History Type Response Smoking Status Never smoker; Exposure to To bacco Smoke None; Cigarette Smoking Last 365 Days No; Reg Smoking Cessation Counseling No entered on: 05/25/20 Assessment and Plan No data available for this section
--- OUTSIDE RECORDS SUMMARY | 2020-09-30 08:04 | XMS REPORT | Continuity of Care Document ---
:1955 Author Organization [employer] Care Team Providers Name Role Phone [employer] Unavailable Un available Problems Problem Status Onset Classification Date Comments Sourc e Date Reported Senile cataract Active Problem 09/13/2020 MH (disorder) Medical Group Benign prostatic Active Problem 09/13/2020 MH hypertroph with outflow Medical obstruction (disorder) Group Finding of increased Active Problem 09/13/2020 blood pressure Medic al (finding) Group Hypercholesterolemia Resolved Problem 09/13/2020 MH (disorder) Medical Group Prediabetes (finding) Active Problem 09/13/2020 Medical Group Screening status Active Problem 09/13/2020 MH (finding) Medical Group Simple obesity Active Problem 09/13/2020 MH (disorder) Medical Group Patient encounter Active Problem 09/13/2020 M H status (finding) Med ical Group Pure Active Problem 09/13/2020 hypercholesterolemia Medical (disorder) Group Raised prostate Active Problem 09/13/2020 specific antigen Med ical (finding) Group Viral screening status Active Problem 09/13/2020 MH (finding) Medical Group Medications Medication Details Route Status Patient Ordering Order Source Instructions Provider Date terbinafine 250 mg 250 mg = 1 Active MH oral tablet tab, PO, 020 Medical Daily, X Group 30 day, # 30 tab, 0 Refill(s) Betamethasone 0.5 1 appl, Active MH MG/ML / TOP, BID, 020 Medical Clotrimazole 10 PRN Apply Group MG/ML Topical to Cream affected areas, Not to be used longer than 2 weeks, X 14 day, # 45 gm, 0 Refill(s), Pharmacy: [facility], 185.42, cm, 04/21/20 14:23:00 CDT, Height, 101.364, kg, 04/21/20 14:23:00 CDT, Weight finasteride 5 mg 5 mg = 1 Active oral tablet tab, PO, 020 Medical Daily, # Group 90 tab, 1 Refill(s), Pharmacy: [facility], 185.42, cm, 04/21/20 14:23:00 CDT, Height, 101.364, kg, 04/21/20 14:23:00 CDT, Weight simvastatin 10 mg 10 mg = 1 Active MH oral tablet tab, PO, 020 Medical Bedtime, # Group 90 tab, 1 Refill(s), Pharmacy: [facility], 185.42, cm, 04/21/20 14:23:00 CDT, Height, 101.364, kg, 04/21/20 14:23:00 CDT, Weight tamsulosin 0.4 mg 0.4 mg = 1 Active MH oral capsule cap, PO, 020 Medical Daily, # Group 90 cap, 1 Refill(s), Pharmacy: [facility], 185.42, cm, 04/21/20 14:23:00 CDT, Height, 101.364, kg, 04/21/20 14:23:00 CDT, Weight tamsulosin 0.4 mg 0.4 mg = 1 Active oral capsule cap, PO, 019 Medical Daily, # Group 90 cap, 1 Refill(s), Pharmacy: [facility] simvastatin 10 mg 10 mg = 1 Active MH oral tablet tab, PO, 019 Medical Bedtime, # Group 90 tab, 1 Refill(s), Pharmacy: [facility] Sulfamethoxazole 1 tab, PO, Active MH 800 MG / BID, start 019 Medical Trimethoprim 160 day before Grou p MG Oral Tablet procedure, [Bactrim] X 3 day, # 6 tab, 0 Refill(s), Pharmacy: [facility] Sodium Phosphate, 1 ea, [place], Active MH Dibasic 35.5 MG/ML ONCE, 019 Medic al / Sodium morning of Group Phosphate, procedure, Monobasic 96.4 # 118 ml, MG/ML Enema [Fleet 0 Enema] Refill(s), Pharmacy: [facility] simvastatin 10 mg 10 mg = 1 Active MH oral tablet tab, PO, 019 Medical Bedtime, # Group 90 tab, 1 Refill(s), Pharmacy: [facility] simvastatin 10 mg 10 mg = 1 Active oral tablet tab, PO, 019 Medical Bedtime, # Group 90 tab, 1 Refill(s), Pharmacy: [facility] tamsulosin 0.4 mg 0.4 mg = 1 Active oral capsule cap, PO, 019 Medical Daily, # Group 90 cap, 1 Refill(s), Pharmacy: [facility] finasteride 5 mg 5 mg = 1 Active oral tablet tab, PO, 019 Medical Daily, # Group 90 tab, 1 Refill(s), Pharmacy: [facility] finasteride 5 mg 5 mg = 1 Inactive oral tablet tab, PO, 019 Medical Daily, # Group 90 tab, 1 Refill(s) Allergies, Adverse Reactions, Alerts Substance Category Reaction Severity Reaction Status Date Comments S ource type Reported No Known Assertion Drug Medication allergy Medic al Allergies Group Immunizations Immunization Date Given Site Status Last Comments Source Updated influenza virus 08/16/2019 Right completed [facility] vaccine, deltoid Group inactivated Results No Data Provided for This Section Pathology Reports No Data Provided for This Section Diagnostic Reports No Data Provided for This Section Consultation Notes No Data Provided for This Section Discharge Summaries No Data Provided for This Section History and Physicals No Data Provided for This Section Vital Signs Vital Sign Value Date Comments Source Systolic (mm Hg) 128 04/21/2020 Medical Group Diastolic (mm Hg) 77 04/21/2020 Medical Group Temperature Oral (F) 98.0 F 04/21/2020 [facility] crys Group Height 185.42 cm 04/21/2020 Medical Grou p Weight 101.364 04/21/2020 Medical Grou p BMI Calculated 29.48 04/21/2020 Medical Gr oup Systolic (mm Hg) 149 08/16/2019 Medical Group Diastolic (mm Hg) 81 08/16/2019 Medical Group Heart Rate 54 08/16/2019 Medical Grou p Temperature Oral (F) 97.9 F 08/16/2019 [facility] crys Group Height 185.42 cm 08/16/2019 Medical Grou p Weight 105.653 08/16/2019 Medical Grou p BMI Calculated 30.73 08/16/2019 Medical Gr oup Height 182.88 cm 05/04/2019 Medical Grou p Weight 102.472 05/04/2019 Medical Grou p BMI Calculated 30.64 05/04/2019 [facility] Medical Gr oup Weight 102.386 04/05/2019 Medical Grou p BMI Calculated 29.78 04/05/2019 Medical Gr oup Height 185.42 cm 04/05/2019 Medical Grou p Systolic (mm Hg) 144 04/05/2019 Medical Group Diastolic (mm Hg) 81 04/05/2019 Medical Group Heart Rate 49 04/05/2019 Medical Grou p Temperature Oral (F) 97.0 F 04/05/2019 Medi crys Group Weight 100.727 03/24/2019 MH Medical Grou p BMI Calculated 29.3 03/24/2019 Medical Gr oup Height 185.42 cm 03/24/2019 Medical Grou p Temperature Oral (F) 98.3 F 03/24/2019 Medi crys Group Heart Rate 58 03/24/2019 Medical Grou p Systolic (mm Hg) 131 03/24/2019 Medical Group Diastolic (mm Hg) 76 03/24/2019 Medical Group Encounters Location Location Encounter Encounter Reason Attending ADM NM Stat us Source Details Type Number For Provider Date Date Visit Outpatient [id number] Jadyn 03/24 Active [facility] 3 [facility]ar [facility] Ambulatory [id number] Jadyn 03/24 03/24 M H Primary Pre-Reg 2 [facility] Medi [facility] Ambulatory [id number] Jadyn 03/24 03/24 M H Primary Pre-Reg 1 [facility] Medi [facility] Outpatient [id number] Jadyn 03/24 03/25 M H Primary 3 [facility] Medic al [facility] Ambulatory [id number] Lenore Deutsch 03/25 03/25 MH Primary Pre-Reg 0 Medical Care Group [facility] Outpatient [id number] Jadyn 04/05 Active M [facility] 4 Recavar [facility] Outpatient [id number] Jadyn 04/05 04/06 M H Primary 4 [facility] Medic al [facility] Phone [id number] 04/22 04/24 MH Primary Message [facility] [place] Out[facility] [id number] 05/05 Active M [facility] 6 [place] [facility] Outpatient [id number] 05/05 MH Specialty 6 [facility] Outpatient [id number] 05/20 Active M [facility] 7 [place] Outpatient [id number] NURSE VISIT 05/20 Act [facility] [id number] MED_ASST 05/20 Active [facility] 8 [place] Outpatient [id number] 05/28 Active M [facility] 0 [facility] Ambulatory [id number] 05/28 M H Urology Pre-Reg 0 [facility] Outpatient [id number] Jadyn07/05 Active M [facility] 5 Recavar Gutierrez n [facility] Ambulatory [id number] Jadyn 07/05 07/05 M H Primary Pre-Reg 5 [facility] [place] Outpatient [id number] Jadyn 07/26 Active M [facility] 1 [facility]av[facility] Gutierrez n [facility] Ambulatory [id number] Jadyn 07/26 07/26 M H Primary Pre-Reg 1 [facility] [place] Outpatient [id number] Jadyn 08/02 Active M [facility] 2 Recavar Gutierrez n [facility] Ambulatory [id number] Jadyn 08/02 08/02 M H Primary Pre-Reg 2 [facility] [place] Outpatient [id number] Jadyn 08/03 Active M [facility]orial 3 Recavar Gutierrez n [facility] Ambulatory [id number] Jadyn 08/03 08/03 M H Primary Pre-Reg 3 [facility] [place] Outpatient [id number] Jadyn 08/16 Active M [facility] 4 Gutierrez n [facility] Outpatient [id number] Jadyn 08/16 08/17 M H Primary 4 [facility] [id number] 08/17 08/19 MH Urology [facility] Outpatient [id number] 09/06 Active M [facility] 5 [place] Outpatient [id number] NURSE VISIT 09/09 Act [facility] [place] Outpatient [id number] MED_ASST 09/09 Active [facility] 6 VISIT [place] [facility] Ambulatory [id number] 09/09 M H Urology Pre-Reg 5 [facility] Ambulatory [id number] MED_ASST 09/09 09/09 MH Urology Pre-Reg 6 VISIT [facility] Ambulatory [id number] NURSE VISIT 09/09 09/09 MH Urology Pre-Reg [facility] [address] Outpatient [id number] 09/17 Active M [facility] 8 [place] [facility] Ambulatory [id number] 09/17 M H Urology Pre-Reg 8 [facility] Time [facility] Phone [id number] 04/18 04/20 MH Primary Message [facility] Phone [id number] 04/18 04/20 MH Primary Message [facility] [place] Outpatient [id number] Akuvi Elhor 04/21 Act [facility]opher [facility] 9 [place] [facility] Outpatient [id number] Jadyn 04/21 04/22 M H Primary 9 [facility] Medic [facility] Phone [id number] 05/08 05/10 MH Primary Message [facility] Phone [id number] 05/19 05/21 MH Primary Message [facility] [place] Outpatient [id number] [facility] 05/25 Active [facility] 0 [place] Outpatient [id number] [facility] 05/25 Active [facility] 1 [place] [facility] Multi Ambulatory [id number] [facility] 05/25 05/25 Specialty Pre-Reg 0 Medica [facility] Outpatient [id number] Jadyn 09/07 Active M [facility] 2 Reca [facility] Ambulatory [id number] Jadyn 09/11 09/11 M H Primary Pre-Reg 2 Recavar /2020 [facility] [place] Outpatient [id number] Jadyn 10/25 Active M [facility] 3 Reca Gutierrez [facility]os [facility] Procedures No Data Provided for This Section Assessment and Plan No Data Provided for This Section Plan of Care No Data Provided for This Section Social History Social History Date Source Social History TypeResponse 05/25/2020 Medical G roup Smoking Status Never smoker; Exposure to Tobacco Smoke None; Cigarette Smoking Last 365 Days No; Reg Smoking Cessation Counseling No entered on: 05/25/20 Family History No Data Provided for This Section Advance Directives No Data Provided for This Section Functional Status No Data Provided for This Section
--- NOTE | 2020-09-30 09:27 | ER ---
Nurse's Notes [facility] Name: Haroldo Srivastava Age: 65 yrs Sex: Male : 1955 Arrival Date: 09/30/2020 Time: 07:53 Bed 7 Private MD: Diagnosis: Retention of urine, unspecified Presentation: 09/30 07:58 Chief complaint: Patient states: last normal void was 8pm last night and reports just aa5 "drops" since then. Pt c/o suprapubic pressure and c/o char flank pain. 07:58 Coronavirus screen: Client denies travel out of the [place] in the last 14 days. At this aa5 time, the client does not indicate any symptoms associated with coronavirus-19. Ebola Screen: Patient negative for fever greater than or equal to 101.5 degrees Fahrenheit, and additional compatible Ebola Virus Disease symptoms. Initial Sepsis Screen: Does the patient meet any 2 criteria? No. Patient's initial sepsis screen is negative. Does the patient have a suspected source of infection? No. Patient's initial sepsis screen is negative. Risk Assessment: Do you want to hurt yourself or someone else? Patient reports no desire to harm self or others. Onset of symptoms was September 2020. 07:58 Acuity: TERA 3 aa5 07:58 Method Of Arrival: Ambulatory aa5 Triage Assessment: 08:34 General: Appears distressed, uncomfortable, Behavior is cooperative, appropriate for bp age, anxious. Pain: Complains of pain in pelvis. EENT: No deficits noted. Neuro: No deficits noted. Cardiovascular: No deficits noted. Respiratory: No deficits noted. GI: No signs and/or symptoms were reported involving the gastrointestinal system. : Reports inability to void. Derm: No deficits noted. Musculoskeletal: No deficits noted. Historical: - Allergies: 08:00 No Known Allergies; aa5 - Home Meds: 08:00 None [Active]; aa5 - PMHx: 08:00 None; aa5 - PSHx: 08:00 None; aa5 - Immunization history:: Adult Immunizations unknown. - Social history:: Smoking status: Patient denies any tobacco usage or history of. - Family history:: not pertinent. - Hospitalizations: : No recent hospitalization is reported. Screenin:00 Abuse screen: Denies threats or abuse. Denies injuries from another. Nutritional bp screening: No deficits noted. Tuberculosis screening: No symptoms or risk factors identified. Fall Risk None identified. Assessment: 08:10 Reassessment: Bladder scan completed, TV: 614mls, Dr. Robison notified. . aa5 09:00 Reassessment: Patient appears in no apparent distress at this time. Patient and/or jd3 family updated on plan of care and expected duration. Pain level reassessed. Patient is alert, oriented x 3, equal unlabored respirations, skin warm/dry/pink. Patient states feeling better. General: Appears in no apparent distress. comfortable, Behavior is calm, cooperative, appropriate for age. Pain: Denies pain. Neuro: Level of Consciousness is awake, alert, obeys commands, Oriented to person, place, time, situation. Cardiovascular: Denies chest pain, Capillary refill < 3 seconds Patient's skin is warm and dry. Respiratory: Airway is patent Respiratory effort is even, unlabored, Respiratory pattern is regular, symmetrical, Denies cough, shortness of breath. GI: No signs and/or symptoms were reported involving the gastrointestinal system. : No signs and/or symptoms were reported regarding the genitourinary system. EENT: No signs and/or symptoms were reported regarding the EENT system. Derm: Skin is intact, Skin is dry, Skin is normal, Skin temperature is warm. Musculoskeletal: Circulation, motion, and sensation intact. Range of motion: intact in all extremities. 09:58 Reassessment: Patient appears in no apparent distress at this time. Patient and/or jd3 family updated on plan of care and expected duration. Pain level reassessed. Patient is alert, oriented x 3, equal unlabored respirations, skin warm/dry/pink. Patient states feeling better. Vital Signs: 07:58 BP 186 / 87; Pulse 52; Resp 20 S; Temp 98.0(O); Pulse Ox 99% on R/A; Weight 99.79 kg aa5 (R); Height 6 ft. 0 in. (182.88 cm) (R); Pain 10/10; 09:56 BP 123 / 71; Pulse 55; Resp 17 S; Pulse Ox 96% on R/A; jd3 07:58 Body Mass Index 29.84 (99.79 kg, 182.88 cm) aa5 ED Course: 07:53 Patient arrived in ED. ds1 07:58 Arm band placed on Patient placed in an exam room, on a stretcher. aa5 07:58 Patient has correct armband on for positive identification. Placed in gown. Bed in low aa5 position. Call light in reach. Side rails up X 1. 08:03 Isac Robison MD is Attending Physician. rn 08:07 Naveed Pinedo, RN is Primary Nurse. bp 08:15 Darby cath inserted, using sterile technique, 18 Fr., by co, balloon inflated, to aa5 gravity drainage, Patient tolerated well. 08:15 Bladder scan completed. 641 ML. bp 08:21 Triage completed. aa5 08:33 Urine Microscopic Only Sent. bp 08:34 Urine Culture Sent. bp 09:26 Messi Sultana MD is Referral Physician. rn 09:56 No provider procedures requiring assistance completed. Patient did not have IV access jd3 during this emergency room visit. Administered Medications: 09:52 Drug: Flomax 0.4 mg Route: PO; jd3 09:58 Follow up: Response: Medication administered at discharge. jd3 Outcome: 09:27 Discharge ordered by . rn 09:57 Discharged to home ambulatory, with family. jd3 09:57 Condition: stable 09:57 Discharge instructions given to patient, Instructed on discharge instructions, follow up and referral plans. medication usage, Demonstrated understanding of instructions, follow-up care, medications, Prescriptions given X 1. 09:59 Patient left the ED. jd3 Signatures: LeoneAnastaciai ds1 Isac Robison MD MD rn Calderon, Audri RN RN aa5 Olman Rodriguez RN RN jNaveed Patel, JT RN bp
--- NOTE | 2020-09-30 09:27 | EDPHYS ---
Physician Documentation [facility] Name: Haroldo Srivastava Age: 65 yrs Sex: Male : 1955 Arrival Date: 09/30/2020 Time: 07:53 Bed 7 Private MD: ED Physician Isac Robison HPI: 09/30 09:22 This 65 yrs old Male presents to ER via Ambulatory with complaints of Unable rn to Urinate. 09:22 The patient presents with urinary symptoms, retention, unable to void. Onset: The rn symptoms/episode began/occurred last night. Modifying factors: The symptoms are alleviated by nothing, the symptoms are aggravated by pressure. Associated signs and symptoms: Pertinent positives: abdominal pain, Pertinent negatives: fever, hematuria. Severity of symptoms: At their worst the symptoms were moderate, in the emergency department the symptoms are unchanged. The patient has experienced a previous episode. The patient has not recently seen a physician. Reports lower abd pressure, bladder "feels full", hasn't been able to urinate since last night. No trauma. No fever/vomiting/diarrhea. Reports happened once before, doesn't recall diagnosis. Does report ongoing urinary problems with weak dribbling stream. . Historical: - Allergies: 08:00 No Known Allergies; aa5 - Home Meds: 08:00 None [Active]; aa5 - PMHx: 08:00 None; aa5 - PSHx: 08:00 None; aa5 - Immunization history:: Adult Immunizations unknown. - Social history:: Smoking status: Patient denies any tobacco usage or history of. - Family history:: not pertinent. - Hospitalizations: : No recent hospitalization is reported. ROS: 09:22 Constitutional: Negative for fever, chills, and weight loss, Eyes: Negative for injury, rn pain, redness, and discharge, Neck: Negative for injury, pain, and swelling, Cardiovascular: Negative for chest pain, palpitations, and edema, Respiratory: Negative for shortness of breath, cough, wheezing, and pleuritic chest pain, Abdomen/GI: Negative for nausea, vomiting, diarrhea, and constipation, Back: Negative for injury and pain, : + urinary retention MS/Extremity: Negative for injury and deformity, Skin: Negative for injury, rash, and discoloration, Neuro: Negative for headache, weakness, numbness, tingling, and seizure. Exam: 09:22 Constitutional: This is a well developed, well nourished patient who is awake, alert, rn appears uncomfortable, ambulatory to room without assistance. Cardiovascular: bradycardic, regular Respiratory: Speaking full sentences, unlabored. Abdomen/GI: soft, + suprapubic fullness, no peritoneal signs. Skin: Warm, dry Neuro: Awake and alert, GCS 15, oriented to person, place, time, and situation. Cranial nerves II-XII grossly intact. Motor strength 5/5 in all extremities. Sensory grossly intact. Cerebellar exam normal. Normal gait. Vital Signs: 07:58 BP 186 / 87; Pulse 52; Resp 20 S; Temp 98.0(O); Pulse Ox 99% on R/A; Weight 99.79 kg aa5 (R); Height 6 ft. 0 in. (182.88 cm) (R); Pain 10/10; 09:56 BP 123 / 71; Pulse 55; Resp 17 S; Pulse Ox 96% on R/A; jd3 07:58 Body Mass Index 29.84 (99.79 kg, 182.88 cm) aa5 MDM: 08:03 Patient medically screened. rn 09:22 Differential diagnosis: nonspecific abdominal pain, UTI, urinary retention, rn prostatitis. Data reviewed: vital signs, nurses notes, lab test result(s), and as a result, I will discharge patient. Counseling: I had a detailed discussion with the patient and/or guardian regarding: the historical points, exam findings, and any diagnostic results supporting the discharge/admit diagnosis, the need for outpatient follow up, to return to the emergency department if symptoms worsen or persist or if there are any questions or concerns that arise at home. Response to treatment: the patient's symptoms have markedly improved after treatment, and as a result, I will discharge patient. Special discussion: I discussed with the patient/guardian in detail that at this point there is no indication for admission to the hospital. It is understood, however, that if the symptoms persist or worsen the patient needs to return immediately for re-evaluation. Based on the history and exam findings, there is no indication for further emergent testing or inpatient evaluation. I discussed with the patient/guardian the need to see the urologist for further evaluation of the symptoms. ED course: UA neg for infection, story consistent with prostate problems, will dc with Flomax and urology f/u.. 09/30 08:04 Order name: Urine Culture rn 09/30 08:04 Order name: Urine Microscopic Only rn 09/30 08:04 Order name: Urine Culture EDSD 09/30 08:04 Order name: Urine Microscopic Only EDSD 09/30 08:29 Order name: Urine Dipstick--Ancillary (enter results) eb 09/30 08:04 Order name: Bladder Scanner; Complete Time: 08:23 rn 09/30 08:04 Order name: Urine Dipstick-Ancillary (obtain specimen); Complete Time: 08:34 rn 09/30 08:13 Order name: Darby Leg Bag; Complete Time: 09:53 rn Administered Medications: 09:52 Drug: Flomax 0.4 mg Route: PO; jd3 09:58 Follow up: Response: Medication administered at discharge. jd3 Disposition: 09/30/20 09:27 Discharged to Home. Impression: Retention of urine, unspecified. - Condition is Stable. - Discharge Instructions: Darby Catheter Care, Adult, Acute Urinary Retention, Male. - Prescriptions for Flomax 0.4 mg Oral Capsule, Sust. Release 24 hr - take 1 capsule by ORAL route once daily 1/2 hour following the same meal each day; 60 capsule. - Medication Reconciliation Form, Thank You Letter, Antibiotic Education, Prescription Opioid Use form. - Follow up: Messi Sultana MD; When: 5 - 6 days; Reason: Further diagnostic work-up, Recheck today's complaints, Continuance of care, Re-evaluation by your physician. - Problem is new. - Symptoms have improved. Signatures: Dispatcher [employer] EDSD Isac Robison MD MD rn Calderon, Audri, RN RN aa5 Olman Rodriguez RN RN jd3 Corrections: (The following items were deleted from the chart) 09:59 09:27 09/30/2020 09:27 Discharged to Home. Impression: Retention of urine, unspecified. jd3 Condition is Stable. Forms are Medication Reconciliation Form, Thank You Letter, Antibiotic Education, Prescription Opioid Use. Follow up: Messi Sultana; When: 5 - 6 days; Reason: Further diagnostic work-up, Recheck today's complaints, Continuance of care, Re-evaluation by your physician. Problem is new. Symptoms have improved. rn
[2020-09-30 09:34] LABS: Urine Blood 1+ (NEG); Urine Glucose NEGATIVE (NEG); Urine Protein NEGATIVE (NEG); Urine pH 6.5 (5.0-7.0)
[2020-09-30 09:35] LABS: Urine Bacteria <20 /HPF (NONE SEEN)
[2020-09-30] MEDS ORDERED: TAMSULOSIN 0.4 MG SR CAP ONE (09:55)
[2020-09-30 10:07] VITALS: TEMP 98
[2020-09-30 10:09] VITALS: BP 123/71; O2SAT 96
== END 2020-09-30 09:59 | disposition home or self-care (01) ==
LOC: ER 07:51
DX: R33.9 Retention of urine, unspecified (principal)
CPT/HCPCS: 51702; 81003; 81015; 87086; 87088; 99284

== ENCOUNTER 2020-10-02 11:53 | Emergency (ER) | payer MEDICARE, SELFPAY ==
--- OUTSIDE RECORDS SUMMARY | 2020-10-02 11:56 | XMS REPORT | Continuity of Care Document ---
:1955 Author Organization [facility] t Address [address] [place] [address] Care Team Providers Name Role Phone Jadyn [...] M emoria increased 22:43:20 l blood Finding [place] pressure of (finding) increased blood pressure (finding) Active Problem 09/13/2020 [facility] Prediabete Problem Active 2020-09-13 M emoria s 22:43:20 l (finding) [place] Prediabete s (finding) Active Problem 09/13/2020 [facility] Screening Problem Active 2020-09-13 Me moria status 22:43:20 l (finding) [place] Screening status (finding) Active Problem 09/13/2020 [facility] Simple Problem Active 2020-09-13 Memor ia obesity 22:43:20 l (disorder) Simple Herm wagner obesity (disorder) Active Problem 09/13/2020 [facility] Patient Problem Active 2020-09-13 Hai natalia encounter 22:43:20 l status Patient [place] (finding) encounter status (finding) Active Problem 09/13/2020 [...] Memor ia screening 22:43:20 l status Viral [place] (finding) screening status (finding) Active Problem 09/13/2020 [facility] Allergies, Adverse Reactions, Alerts Allergy Allergy Status Severity Reaction(s) Onset Inactive Treating Comm ents Source Name Type Date Date Clinician No Known No Known Active Memori a Medicati Medicati l on on [place] Allergie Allergie s s Social History Smoking Status Start Date Stop Date Source Social History [facility] Medications Ordered Filled Start Stop Current Ordering Indication Dosage Frequency Signature Comments Components Source Medication Medication Date Date Medication? Clinician (SIG) Name Name terbinafine 2020-0 Yes 250 mg = 1 Memoria 250 mg oral 8-14 tab, PO, l tablet 19:55: Daily, X [place] 00 30 day, # 30 tab, 0 Refill(s) Betamethaso 2020-0 Yes 1 appl, Mem oria ne 0.5 8-14 TOP, BID, l MG/ML / 19:54: PRN Apply Rosalinda nn Clotrimazol 00 to e 10 MG/ML affected Topical areas, Not Cream to be used longer than 2 weeks, X 14 day, # 45 gm, 0 Refill(s), Pharmacy: [facility], 185.42, cm, 04/21/20 14:23:00 CDT, Height, 101.364, kg, 04/21/20 14:23:00 CDT, Weight finasteride 2019- Yes 5 mg = 1 Me moria 5 mg oral 8-14 tab, PO, l tablet 19:53: Daily, # Brig[place] 00 90 tab, 1 Refill(s), Pharmacy: [facility], 185.42, cm, 04/21/20 14:23:00 CDT, Height, 101.364, kg, 04/21/20 14:23:00 CDT, Weight simvastatin Yes 10 mg = 1 M emoria 10 mg oral 8-14 tab, PO, l tablet 19:53: Bedtime, # Rosalinda nn 00 90 tab, 1 Refill(s), Pharmacy: [facility]08, 185.42, cm, 04/21/20 14:23:00 CDT, Height, 101.364, kg, 04/21/20 14:23:00 CDT, Weight tamsulosin Yes 0.4 mg = 1 M emoria 0.4 mg oral 8-14 cap, PO, l capsule 19:53: Daily, # Gutierrez n 00 90 cap, 1 Refill(s), Pharmacy: [facility]08, 185.42, cm, 04/21/20 14:23:00 CDT, Height, 101.364, kg, 04/21/20 14:23:00 CDT, Weight tamsulosin 2018-09 Yes 0.4 mg = 1 M emoria 0.4 mg oral 2-09 cap, PO, l capsule 22:54: Daily, # Gutierrez n 08 90 cap, 1 Refill(s), Pharmacy: [place] [id number] simvastatin 2018-09 Yes 10 mg = 1 M emoria 10 mg oral 2-09 tab, PO, l tablet 22:53: Bedtime, # Rosalinda nn 53 90 tab, 1 Refill(s), Pharmacy: [place] [id number] Sulfamethox 2019- Yes 1 tab, PO, Memoria azole 800 8-28 BID, start l MG / 14:34: day before Brigido Trimethopri 00 procedure, m 160 MG X 3 day, # Oral Tablet 6 tab, 0 [Bactrim] Refill(s), Pharmacy: [facility] Sodium 2018-0 Yes 1 ea, AK, Memori a Phosphate, 8-28 ONCE, l Dibasic 14:34: morning of Herm wagner 35.5 MG/ML 00 procedure, / Sodium # 118 ml, Phosphate, 0 Monobasic Refill(s), 96.4 MG/ML Pharmacy: [facility] simvastatin 2018- Yes 10 mg = 1 M emoria 10 mg oral 8-15 tab, PO, l tablet 19:42: Bedtime, # Rosalinda nn 39 90 tab, 1 Refill(s), Pharmacy: [facility] simvastatin Yes 10 mg = 1 M emoria 10 mg oral 7-30 tab, PO, l tablet 12:16: Bedtime, # Rosalinda nn 00 90 tab, 1 Refill(s), Pharmacy: [facility] tamsulosin Yes 0.4 mg = 1 M emoria 0.4 mg oral 7-17 cap, PO, l capsule 16:20: Daily, # Gutierrez n 00 90 cap, 1 Refill(s), Pharmacy: [place] [id number] finasteride Yes 5 mg = 1 Me moria 5 mg oral 7-17 tab, PO, l tablet 16:20: Daily, # [place] 00 90 tab, 1 Refill(s), Pharmacy: [place] [id number] finasteride 0 No 5 mg = 1 Me moria 5 mg oral 7-17 tab, PO, l tablet 15:55: Daily, # [place] 00 90 tab, 1 Refill(s) Vital Signs Vital Name Observation Time Observation Value Comments Source Systolic (mm Hg) 2020-04-21 19:23:00 Hai riaelizabeth [place] Diastolic (mm Hg) 2020-04-21 19:23:00 Mem orial [place] Temperature Oral (F) 2020-04-21 19:23:00 98.0 F [facility] Height 2020-04-21 19:23:00 185.42 cm [facility] Weight 2020-04-21 19:23:00 [facility] BMI Calculated 2020-04-21 19:23:00 Memori al [place] Systolic (mm Hg) 2019-08-16 19:27:00 Hai rial [place] Diastolic (mm Hg) 2019-08-16 19:27:00 Mem orial [place] Heart Rate 2019-08-16 19:27:00 [facility] [place] Temperature Oral (F) 2019-08-16 19:27:00 97.9 F [facility] Height 2019-08-16 19:27:00 185.42 cm [facility] [place] Weight 2019-08-16 19:27:00 [facility] BMI Calculated 2019-08-16 19:27:00 Memori al [place] Height 2019-05-04 18:12:00 182.88 cm [facility] [place] Weight 2019-05-04 18:12:00 [facility] [place] BMI Calculated 2019-05-04 18:12:00 Memori al [place] Weight 2019-04-05 12:17:00 [facility] [place] BMI Calculated 2019-04-05 12:17:00 Memori al [place] Height 2019-04-05 12:17:00 185.42 cm [facility] Systolic (mm Hg) 2019-04-05 12:17:00 Hai rial [place] Diastolic (mm Hg) 2019-04-05 12:17:00 Mem orial [place] Heart Rate 2019-04-05 12:17:00 [facility] [place] Temperature Oral (F) 2019-04-05 12:17:00 97.0 F [facility] [place] Weight 2019-03-24 15:43:00 [facility] [place] BMI Calculated 2019-03-24 15:43:00 Memori al [place] Height 2019-03-24 15:43:00 185.42 cm [facility] [place] Temperature Oral (F) 2019-03-24 15:43:00 98.3 F [facility] Heart Rate 2019-03-24 15:43:00 [facility] [place] Systolic (mm Hg) 2019-03-24 15:43:00 Hai rial [place] Diastolic (mm Hg) 2019-03-24 15:43:00 Mem orial [place] Procedures This patient has no known procedures. Encounters Start End Encounter Admission Attending Care Care Encounter Source Date/Time Date/Time Type Type Clinicians Facility Department ID 2020-09-11 2020-09-11 Outpatient Recavarren [facility] [id number] 13:30:00 13:30:00 Michael Vale 2020-05-25 2020-05-25 Outpatient Germaine [facility] [id number] 14:45:00 14:45:00 Mohummed Kal Pineda 2020-05-19 2020-05-20 Outpatient [facility] [id number] 15:21:18 23:59:59 07 2020-05-08 2020-05-09 Outpatient [facility] [id number] 16:42:37 23:59:59 04 2020-04-21 2020-04-21 Outpatient Recavarren [facility] [id number] 14:30:00 23:59:59 iV Vale 2020-04-18 2020-04-19 Outpatient [facility] [id number] 14:39:14 23:59:59 03 2020-04-18 2020-04-19 Outpatient [facility] [id number] 14:37:57 23:59:59 02 2019-09-17 2019-09-17 Outpatient [place], [facility] [id number] 09:40:00 09:40:00 Jose Perez 18 2019-09-09 2019-09-09 Outpatient [place], [facility] [id number] 09:45:00 09:45:00 Jose Perez 15 2019-09-09 2019-09-09 Outpatient VISIT, [facility] [id number] 09:45:00 09:45:00 MED_ASST 16 [facility] 2019-09-09 2019-09-09 Outpatient VISIT, [facility] [id number] 09:45:00 09:45:00 NURSE [facility] 17 2019-08-17 2019-08-18 Outpatient [facility] [id number] 10:24:00 23:59:59 2019-08-16 2019-08-16 Outpatient Recavarren [facility] [id number] 13:30:00 23:59:59 Amanda Vale 2019-08-03 2019-08-03 Outpatient [facility] [id number] 10:00:00 10:00:00 Keith Vale 2019-08-02 2019-08-02 Outpatient [facility] [id number] 07:30:00 07:30:00 Vandana Vale 2019-07-26 2019-07-26 Outpatient [facility] [id number] 07:30:00 07:30:00 Akanksha 11 Jadyn García 2019-07-05 2019-07-05 Outpatient [facility] [id number] 11:30:00 11:30:00 Akanksha 05 Jadyn García 2019-05-28 2019-05-28 Outpatient Dayanna, [facility] [id number] 11:30:00 11:30:00 Jose Chris 10 2019-05-05 2019-05-05 Outpatient Dayanna, [facility] [id number] 09:15:00 23:59:59 Jose Perez 06 2019-04-22 2019-04-23 Outpatient [facility] [id number] 14:38:36 23:59:59 2019-04-05 2019-04-05 Outpatient [facility] [id number] 07:00:00 23:59:59 Akanksha 04 Jadyn García 2019-03-25 2019-03-25 Outpatient [place], [facility] [id number] 10:30:00 10:30:00 Marisabelquan Chavez 2019-03-24 2019-03-24 Outpatient [facility] [id number] 10:30:00 23:59:59 Akanksha 03 Jadyn García 2019-03-24 2019-03-24 Outpatient [facility] [id number] 10:30:00 10:30:00 Akanksha 02 Jadyn García 2019-03-24 2019-03-24 Outpatient [facility] [id number] 10:30:00 10:30:00 Akanksha, 01 Jadyn García Results This patient has no known results.
--- OUTSIDE RECORDS SUMMARY | 2020-10-02 11:56 | XMS REPORT | Continuity of Care Document ---
:1955 Author Organization [facility] Care Team Providers Name Role Phone [facility] Unavailable Un available Problems Problem Status Onset [...] day, # 45 gm, 0 Refill(s), Pharmacy: [facility], 185.42, cm, 04/21/20 14:23:00 CDT, Height, 101.364, kg, 04/21/20 14:23:00 CDT, Weight finasteride 5 mg 5 mg = 1 Active oral tablet tab, PO, 020 Medical Daily, # Group 90 tab, 1 Refill(s), Pharmacy: [facility], 185.42, cm, 04/21/20 14:23:00 CDT, Height, 101.364, kg, 04/21/20 14:23:00 CDT, Weight simvastatin 10 mg 10 mg = 1 Active MH oral tablet tab, PO, 020 Medical Bedtime, # Group 90 tab, 1 Refill(s), Pharmacy: [facility], 185.42, cm, 04/21/20 14:23:00 CDT, Height, 101.364, kg, 04/21/20 14:23:00 CDT, Weight tamsulosin 0.4 mg 0.4 mg = 1 Active MH oral capsule cap, PO, 020 Medical Daily, # Group 90 cap, 1 Refill(s), Pharmacy: [facility], 185.42, cm, 04/21/20 14:23:00 CDT, Height, 101.364, kg, 04/21/20 14:23:00 CDT, Weight tamsulosin 0.4 mg 0.4 mg = 1 Active oral capsule cap, PO, 019 Medical Daily, # Group 90 cap, 1 Refill(s), Pharmacy: [facility] simvastatin 10 mg 10 mg = 1 Active MH oral tablet tab, PO, 019 Medical Bedtime, # Group 90 tab, 1 Refill(s), Pharmacy: [facility] Sulfamethoxazole 1 tab, PO, Active MH 800 MG / BID, start 019 Medical Trimethoprim 160 day before Grou p MG Oral Tablet procedure, [Bactrim] X 3 day, # 6 tab, 0 Refill(s), Pharmacy: [facility] Sodium Phosphate, 1 ea, NC, Active MH Dibasic 35.5 MG/ML ONCE, 019 Medic al / Sodium morning of Group Phosphate, procedure, Monobasic 96.4 # 118 ml, MG/ML Enema [Fleet 0 Enema] Refill(s), Pharmacy: [facility] simvastatin 10 mg 10 mg = 1 Active MH oral tablet tab, PO, 019 Medical Bedtime, # Group 90 tab, 1 Refill(s), Pharmacy: [facility] simvastatin 10 mg 10 mg = 1 Active oral tablet tab, PO, 019 Medical Bedtime, # Group 90 tab, 1 Refill(s), Pharmacy: [facility] tamsulosin 0.4 mg 0.4 mg = 1 Active oral capsule cap, PO, 019 Medical Daily, # Group 90 cap, 1 Refill(s), Pharmacy: [facility] finasteride 5 mg 5 mg = 1 Active oral tablet tab, PO, 019 Medical Daily, # Group 90 tab, 1 Refill(s), Pharmacy: [facility] finasteride 5 mg 5 mg [...] Group Temperature Oral (F) 98.0 F 04/21/2020 [facility] Height 185.42 cm 04/21/2020 [facility] Weight 101.364 04/21/2020 [facility] BMI Calculated 29.48 04/21/2020 [facility] oup Systolic (mm Hg) 149 08/16/2019 [facility] Diastolic (mm Hg) 81 08/16/2019 [facility] Heart Rate 54 08/16/2019 [facility] Temperature Oral (F) 97.9 F 08/16/2019 [facility] Height 185.42 cm 08/16/2019 [...] Location Location Encounter Encounter Reason Attending ADM OK Stat us Source Details Type Number For Provider Date Date Visit Outpatient [id number] Jadyn 03/24 [facility] [place] [facility] Ambulatory [id number] Jadyn 03/24 03/24 M H Primary Pre-Reg 2 [facility] Ambulatory [id number] Jadyn 03/24 03/24 M H Primary Pre-Reg 1 [facility] Outpatient [id number] Jadyn 03/24 03/25 M H Primary 3 [facility] Ambulatory [id number] Lenore Deutsch 03/25 03/25 MH Primary Pre-Reg 0 [facility] Outpatient [id number] Jadyn 04/05 Active [facility] 4 [facility] [place] [facility] Outpatient [id number] Jadyn 04/05 04/06 M H Primary 4 [facility] Phone [id number] 04/22 04/24 MH Primary [facility] [place] Outpatient [id number] 05/05 Active [facility] 6 [place] [facility] Outpatient [id number] 05/05 MH Specialty 6 [facility] Outpatient [id number] 05/20 Active [facility] 7 [place] Outpatient [id number] NURSE VISIT 05/20 [facility] [id number] MED_ASST 05/20 Active [facility] 8 [place] Outpatient [id number] 05/28 Active [facility] 0 [facility] Ambulatory [id number] 05/28 M H Urology [facility]-Reg [facility] Outpatient [id number] Jadyn07/05 Active [facility] 5 [facility] [facility] Ambulatory [id number] Jadyn 07/05 07/05 M H Primary Pre-Reg 5 [facility] [place] Outpatient [id number] Jadyn 07/26 Active [facility] 1 [facility] [facility] Ambulatory [id number] Jadyn 07/26 07/26 M H Primary Pre-Reg 1 [facility] [place] Outpatient [id number] Jadyn 08/02 Active [facility] 2 [facility] [facility] Ambulatory [id number] Jadyn 08/02 08/02 M H Primary Pre-Reg 2 [facility] [place] Outpatient [id number] Jadyn 08/03 Active [facility] 3 [facility] [place] [facility] Ambulatory [id number] Jadyn 08/03 08/03 M H Primary Pre-Reg 3 [facility] [place] Outpatient [id number] Jadyn 08/16 Active [facility] 4 [place] [facility] Outpatient [id number] Jadyn 08/16 08/17 M H Primary 4 [facility] [id number] 08/17 08/19 MH Urology [facility] Outpatient [id number] 09/06 Active [facility] 5 [place] Outpatient [id number] NURSE VISIT 09/09 [facility] [place] Outpatient [id number] MED_ASST 09/09 Active [facility] 6 VISIT [place] [facility] Ambulatory [id number] 09/09 M H Urology Pre-Reg 5 [facility] Ambulatory [id number] MED_ASST 09/09 09/09 MH Urology Pre-Reg 6 [facility] Ambulatory [id number] NURSE VISIT 09/09 09/09 MH Urology Pre-Reg [facility] [place] Outpatient [id number] 09/17 Active [facility] 8 [place] [facility] Ambulatory [id number] 09/17 M H Urology Pre-Reg 8 [facility] Phone [id number] 04/18 04/20 MH [facility] Phone [id number] 04/18 04/20 MH Primary [facility] [place] Outpatient [id number] Akuvi Elhor 04/21 [facility] [place] [facility] Outpatient [id number] Jadyn 04/21 04/22 M H Primary 9 [facility] Phone [id number] 05/08 05/10 MH [facility] Phone [id number] 05/19 05/21 MH [facility] [place] Outpatient [id number] [facility] 05/25 Active [facility] 0 [place] Outpatient [id number] [facility] 05/25 Active [facility] 1 [place] [facility] Multi Ambulatory [id number] [facility] 05/25 05/25 Specialty Pre-Reg 0 Medica l [facility] Outpatient [id number] Jadyn 09/07 Active [facility] 2 [facility] [facility] Ambulatory [id number] Jadyn 09/11 09/11 M H Primary Pre-Reg 2 [facility] /2020 [facility] [place] Outpatient [id number] Jadyn 10/03 Active [facility] 4 [facility] [place] Outpatient [id number] Jadyn 10/25 Active [facility] 3 [facility] [place] Procedures No Data Provided for This [...]
--- NOTE | 2020-10-02 14:00 | ER ---
Nurse's Notes [facility] Name: Haroldo Srivastava Age: 65 yrs Sex: Male : 1955 Arrival Date: 10/02/2020 Time: 11:55 Bed Waiting Private MD: Diagnosis: Presentation: 10/02 12:39 Chief complaint: Patient states: he is having problems urinating, he came Friday, he tw2 has a catheter and its leaking around the insertion and the pain is all over and there is urine in the bag. Coronavirus screen: At this time, the client does not indicate any symptoms associated with coronavirus-19. Ebola Screen: Patient denies travel to an Ebola-affected area in the 21 days before illness onset. Initial Sepsis Screen: Does the patient meet any 2 criteria? No. Patient's initial sepsis screen is negative. Does the patient have a suspected source of infection? No. Patient's initial sepsis screen is negative. Risk Assessment: Do you want to hurt yourself or someone else? Patient reports no desire to harm self or others. Onset of symptoms was October 02, 2020. 12:39 Method Of Arrival: Ambulatory tw2 12:39 Acuity: TERA 2 tw2 Triage Assessment: 12:42 General: Appears in no apparent distress. uncomfortable, Behavior is calm, cooperative, tw2 appropriate for age. Pain: Complains of pain in pelvis. Historical: - Allergies: 12:42 No Known Allergies; tw2 - Home Meds: 12:42 None [Active]; tw2 - PMHx: 12:42 None; tw2 - PSHx: 12:42 None; tw2 - Immunization history:: Adult Immunizations. - Social history:: Smoking status: . Assessment: 13:28 Reassessment: no answer, not in lobby. tw2 13:58 Reassessment: no answer, not in lobby. tw2 Vital Signs: 12:39 BP 139 / 108; Pulse 73; Resp 18; Temp 99.8(TE); Pulse Ox 96% on R/A; tw2 12:39 Pain 10/10; tw2 13:08 BP 151 / 94; Pulse 76; Resp 18; Temp 98.6(O); Pulse Ox 97% on R/A; tw2 ED Course: 11:55 Patient arrived in ED. ds1 12:42 Triage completed. tw2 12:42 Arm band placed on. tw2 13:59 Kianna Dodd, RN is Primary Nurse. tw2 Administered Medications: No medications were administered Outcome: 13:58 Eloped from patient exam room, post triage evaluation and consult. see chart Time tw2 discovered patient gone: October 02, 2020 at 13:59 13:59 Patient left the ED. tw2 Signatures: Soledad Leone ds1 Kianna Dodd, RN RN tw2
[2020-10-02 14:14] VITALS: BP 151/94; TEMP 98.6; O2SAT 97
== END 2020-10-02 13:59 | disposition left against medical advice (07) ==
LOC: ER 11:53
DX: T83.031A Leakage of indwelling urethral catheter, initial encounter (principal); Z53.21 Procedure and treatment not carried out due to patient leaving prior to being seen by health care provider
CPT/HCPCS: 99281